=== PATIENT | female | born 1940 | race Caucasian/White ===

== ENCOUNTER 2020-05-30 09:59 | Day surgery (SDC) | payer MEDICARE, BC ==
[2020-05-30] MEDS ORDERED: Midazolam 1 MG/ML 2 ML SDV IV ONE (10:00)
[2020-05-30] MEDS ORDERED: Ondansetron 4 MG/2 ML SDV IV ONE (10:00)
[2020-05-30] MEDS ORDERED: Etomidate 2 MG/ML 20 ML SDV IVPUSH ONE (10:00)
[2020-05-30] MEDS ORDERED: Neostigmine Methylsulfate 10 MG/10 ML MDV IV ONE (10:00)
[2020-05-30] MEDS ORDERED: Rocuronium 100 MG/10 ML MDV IV ONE (10:00)
[2020-05-30] MEDS ORDERED: Glycopyrrolate 0.2 MG/ML 2 ML SDV IV ONE (10:00)
[2020-05-30] MEDS ORDERED: Succinylcholine 200 MG/10 ML MDV IV ONE (10:00)
[2020-05-30] MEDS ORDERED: fentaNYL 100 MCG/2 ML SDV IV ONE (10:00)
[2020-05-30] MEDS ORDERED: Iopamidol 612 MG/ML 100 ML Bottle IVPUSH ONE (10:04)
--- NOTE | 2020-05-30 13:19 | CT ---
EXAMINATION: Abdomen Pelvis w Cont SEX: Female AGE: 79 years CLINICAL HISTORY: 79-year-old hypertensive 162 pound diabetic female complaining right lower quadrant pain (WBC 18,000). Scan technique: Volume acquisition of data unenhanced CT scan of the abdomen and pelvis obtained without oral contrast but during the intravenous administration 75 cc nonionic Isovue contrast at 3 cc/s via injector while patient was lying supine on the Siemens multi slice scanner [place], [place]. All data archived in the PACS system for storage, reformatting axial/sagittal/coronal planes and study. Interpretation: Abnormal. 1. *Distended tubular structure in the right lower quadrant (RLQ) adjacent to the cecum with thickened wall, surrounding inflammatory "dirty" peritoneal fat, and intraluminal calcification i.e. acute appendicitis. 2. No inflammatory abscess or signs of mechanical bowel obstruction. No ascitic fluid or free intraperitoneal air. 3. Gallbladder, liver, stomach, spleen, pancreas and adrenal glands unremarkable. 4. Normal reniform size, axis and configuration. Some renal cortical scarring. No renal cortical mass lesion, nephrolithiasis or signs of obstructive uropathy. 5. Small senescent midline uterus. No adnexal mass lesions in the pelvis. No mesenteric or retroperitoneal lymphadenopathy. 6. Atheromatous calcifications normal caliber aortoiliac vessels. No aneurysm or dissection. 7. Normal cardiac silhouette. No pericardial or pleural effusions. Lung bases clear. CONCLUSION: Acute APPENDICITIS.
[2020-05-30] MEDS ORDERED: Lactated Ringers 1,000 ML IV SCH (14:15)
[2020-05-30] MEDS ORDERED: Piperacillin/Tazobactam 3.375 GM in Sodium Chloride 0.9% 100 ML IV ONE (14:30)
[2020-05-30] MEDS ORDERED: Scopolamine 1.5 MG Transdermal Patch TOP ONE (14:48)
[2020-05-30] MEDS: Morphine 2 MG/ML SYRINGE IVPUSH PRN ×2 (18:07→22:34)
[2020-05-30] MEDS: Sodium Chloride 0.9% 10 ML Syringe FLUSH PRN ×4 (18:08→22:41)
--- NOTE | 2020-05-30 20:46 | OR ---
DATE: 05/30/2020 PREOPERATIVE DIAGNOSIS: Acute appendicitis. POSTOPERATIVE DIAGNOSIS: Acute appendicitis. PROCEDURE: Laparoscopic appendectomy. ANESTHESIA: General. ESTIMATED BLOOD LOSS: Minimum. SPECIMEN: Appendix. OPERATIVE FINDINGS: Acute appendicitis, non-perforated. INDICATION FOR PROCEDURE: This 79-year-old female has a day long history of right lower quadrant pain, elevated white blood cell count of 18,000, and a CT exam that shows acute appendicitis. PROCEDURE IN DETAIL: After adequate preparation, an umbilical 5 mm trocar was placed. The abdomen was insufflated. Two of the midline trocars were placed under direct vision. Examination of the appendix did show the distal 2/3 of the appendix was markedly dilated. The base of the appendix was identified and then the appendix and its mesentery was dissected off the lateral aspect of the colon. A blue staple device was used to transect the appendix at the base and then a vascular white load was used to transect the remaining mesoappendix. Hemostasis was controlled by cautery, which there was only minimal anyway. No other intraabdominal abnormalities were noted. The appendix was placed within a sterile retrieval bag and brought out through the suprapubic trocar site. The abdomen was desufflated. The fascial layers were closed with a 0 Vicryl suture and 4-0 Monocryl for the skin. [facility] /[id number]
[2020-05-30] MEDS: Insulin Lispro 100 Units/ML 3 ML Vial SUBCUT SCH (21:14)
[2020-05-30] MEDS: Acetaminophen/oxyCODONE 325-5 MG Tab PO PRN (23:14)
[2020-05-31] MEDS: Acetaminophen/oxyCODONE 325-5 MG Tab PO PRN ×2 (03:13→07:37)
[2020-05-31] MEDS: Insulin Lispro 100 Units/ML 3 ML Vial SUBCUT SCH ×3 (07:51→12:15)
--- NOTE | 2020-05-31 08:50 | HP ---
INTRODUCTION: This 79-year-old female presented from the [facility] for evaluation of right lower quadrant abdominal pain. She was sent over to the hospital for CT scan, which shows a grossly enlarged appendix with an obstruction in the midportion consistent with appendicitis. No other intra- abdominal abnormalities were noted. On laboratory work, she has an elevated white blood cell count to 18,000. Otherwise, no significant other abnormalities. PAST MEDICAL HISTORY: ALLERGIES: The patient has no known medical allergies. She has several listed on her chart. However, she denies that these are true allergies and states that she usually just gets a headache or nausea with them. PAST SURGICAL HISTORY: Includes laparoscopic tubal ligation. FAMILY HISTORY AND SOCIAL HISTORY: The patient lives here in [place]. She lives by herself. She does not smoke. REVIEW OF SYSTEMS: Positive for insulin-dependent diabetes. MEDICATIONS: Include insulin and metformin. She also takes hydrochlorothiazide. PHYSICAL EXAMINATION: HEENT: Normal. She does talk with a Parkinson-type stutter voice, but she has been worked up for this and has no apparent neurological cause for this. Chest: The lungs are clear bilaterally. Heart: Sounds irregular. I got an EKG and it shows some atrial origins with a few PVCs. Abdomen: Moderately tender in the right lower quadrant. She has positive rebound and positive Rovsing sign. Extremities: Normal. Neurologic: Intact. ASSESSMENT: Acute appendicitis. PLAN: I discussed the risks, benefits, and expected outcomes of a laparoscopic appendectomy. She is currently scheduled to undergo her COVID testing for right now and will then proceed to the operating room. [facility] /[id number]
[2020-05-31] MEDS ORDERED: Scopolamine 1.5 MG Transdermal Patch TOP ONE (10:42)
[2020-05-31 12:06] VITALS: BP 121/53; PULSE 63
--- NOTE | 2020-05-31 13:31 | PCM.SN.2 ---
- Free Text/Narrative Note: Stable POD #1. Pain controlled. PO liquid tolerated. Wounds clean and dry. No nausea but has slight dizzyness. Can discharge now. FU my clinic Aug if has any questions. No restrictions on diet or activity. Instructed to be aware of increased pain again or fever over 101, will nee to be seen in clinic or ER.
== END 2020-05-31 16:00 | disposition home or self-care (01) ==
LOC: DL.SDS 09:59 → DL.CT 09:59 → EDSTATUS 11:00 → DL.MS 05-31 07:17 → DL.SDS 05-31 16:00
PROVIDERS: ATTEND Surgery
DX: K35.33 Acute appendicitis with perforation, localized peritonitis, and gangrene, with abscess (principal); E11.9 Type 2 diabetes mellitus without complications; Z11.59 Encounter for screening for other viral diseases; Z79.4 Long term (current) use of insulin; Z98.51 Tubal ligation status
CPT/HCPCS: 00840; 74177; 82962; A9270-GY; J0330; J2250; J2270; J2405; J2543; J2710; J3010; J3490; J7050; J7120; Q9967; U0002

== ENCOUNTER 2020-06-04 10:01 | Emergency (ER) | payer MEDICARE, BC ==
[2020-06-04 10:17] VITALS: PULSE 69
[2020-06-04 11:02] LABS: ANION GAP 11.6 mEq/L (7-13)
--- NOTE | 2020-06-04 11:23 | EDM.PDOC ---
Scribed by Stephany Nolan 06/04/20 1119 for Brittaney Field NP ED HPI GENERAL MEDICAL PROBLEM - General Chief Complaint: General Stated Complaint: POSSIBLE SURGERY COMPLICATIONS Time Seen by Provider: 06/04/20 10:25 Source of Information: Reports: Patient, Old Records, RN, RN Notes Reviewed History Limitations: Reports: No Limitations - History of Present Illness INITIAL COMMENTS - FREE TEXT/NARRATIVE: Patient presents to ER with complaint of chills last night, sweaty and fatigued. She has had no fever. Patient is status post laparoscopic appendectomy on May 30, 2020. She has a prescription for Oxycodone but is not taking it. Her diabetes has been in good control. Abdominal discomfort very mild. She had a good BM this am; normal. No dizziness. Onset: Today Duration: Hour(s): Location: Reports: Abdomen Quality: Reports: Ache Severity: Moderate Improves with: Reports: None Worsens with: Reports: None Associated Symptoms: Reports: No Other Symptoms - Related Data Allergies Allergy/AdvReac Type Severity Reaction Status Date / Time amoxicillin [Amoxicillin] Allergy Nausea Verified 06/04/20 10:17 amoxicillin trihydrate Allergy Nausea Verified 06/04/20 10:17 [From Augmentin] azithromycin [From Zithromax] Allergy Nausea Verified 06/04/20 10:17 lisinopril Allergy Indigestion Verified 06/04/20 10:17 losartan [Losartan] Allergy Nervousness Verified 06/04/20 10:17 potassium clavulanate Allergy Nausea Verified 06/04/20 10:17 [From Augmentin] pravastatin Allergy Nausea Verified 06/04/20 10:17 simvastatin Allergy Nausea Verified 06/04/20 10:17 valsartan [From Diovan] Allergy Lethargy Verified 06/04/20 10:17 aliskiren hemifumarate AdvReac Stomach Verified 06/04/20 10:17 [From Tekturna] Upset Home Meds: Home Meds Insulin Glarg,Human.Rec.Analog [Lantus Solostar] 30 units INJECT BID 04/03/14 [History] Levothyroxine [Synthroid] 88 mcg PO ACBRK 04/03/14 [History] amLODIPine Besylate [Amlodipine Besylate] 5 mg PO DAILY 04/03/14 [History] hydroCHLOROthiazide [Hydrochlorothiazide] 12.5 mg PO DAILY 04/03/14 [History] metFORMIN [Glucophage] 500 mg PO BID 04/03/14 [History] Meclizine [Antivert] 12.5 mg PO TID PRN 05/03/15 [History] Triamcinolone Acetonide [Triamcinolone Acetonide 0.1% Crm] 1 applic TOP BID PRN 05/03/15 [History] Past Medical History HEENT History: Reports: Sinusitis Other HEENT History: DIABETIC EYE EXAM EVERY 3 MONTHS Cardiovascular History: Reports: High Cholesterol, Hypertension, Other (See Below) Other Cardiovascular History: IRREGULAR RYTHM Respiratory History: Reports: None Other Respiratory History: HAS RECEIVED PNEMO VAX Gastrointestinal History: Reports: Colon Polyp Genitourinary History: Reports: Chronic Renal Insuffiency Other Genitourinary History: CALCUS OF URETER, CKD 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 [employer]ER History: Reports: Musculoskeletal History: Reports: Back Pain, Chronic, Fracture, Other (See Below) Other Musculoskeletal History: DDD LUMBAR; LUMBAR RADICULOPATHY; WRIST FRACTURE Neurological History: Reports: None Psychiatric History: Reports: None Endocrine/Metabolic History: Reports: Diabetes, Type II, Hypothyroidism, Osteopenia, Other (See Below) Other Endocrine/Metabolic History: VITAMIN B12 Hematologic History: Reports: B12 Deficiency Immunologic History: Reports: None Oncologic (Cancer) History: Reports: None Dermatologic History: Reports: None - Infectious Disease History Infectious Disease History: Reports: Chicken Pox, Measles, Mumps - Past Surgical History Head Surgeries/Procedures: Reports: None HEENT Surgical History: Reports: Cataract Surgery Other HEENT Surgeries/Procedures: BILAT EYE CATARACT EXTRACTION Cardiovascular Surgical History: Reports: None Respiratory Surgical History: Reports: None GI Surgical History: Reports: Appendectomy, Colonoscopy, Polypectomy Female Surgical History: Reports: Tubal Ligation Male Surgical History: Reports: None Endocrine Surgical History: Reports: None Neurological Surgical History: Reports: None Musculoskeletal Surgical History: Reports: None Oncologic Surgical History: Reports: None Social & Family History - Family History Family Medical History: Noncontributory - Caffeine Use Caffeine Use: Reports: Coffee, Tea - Living Situation & Occupation Living situation: Reports: with Family Occupation: Retired ED ROS GENERAL - Review of Systems Review Of Systems: Comprehensive ROS is negative, except as noted in HPI. ED EXAM, GENERAL - Physical Exam Exam: See Below Exam Limited By: No Limitations General Appearance: Alert, WD/WN, No Apparent Distress Eye Exam: Bilateral Eye: EOMI, Normal Inspection, PERRL Ears: Normal External Exam, Normal Canal, Hearing Grossly Normal, Normal TMs Nose: Normal Inspection, Normal Mucosa, No Blood Throat/Mouth: Normal Inspection, Normal Lips, Normal Teeth, Normal Gums, Normal Oropharynx, Normal Voice, No Airway Compromise Head: Atraumatic, Normocephalic Neck: Normal Inspection, Supple, Non-Tender, Full Range of Motion Respiratory/Chest: No Respiratory Distress, Lungs Clear, Normal Breath Sounds, No Accessory Muscle Use, Chest Non-Tender Cardiovascular: Normal Peripheral Pulses, Regular Rate, Rhythm, No Edema, No Gallop, No JVD, No Murmur, No Rub GI/Abdominal: Other (3 incisions are covered with steri-strips. ) (Female) Exam: Deferred Rectal (Female) Exam: Deferred Back Exam: Normal Inspection, Full Range of Motion, NT Extremities: Normal Inspection, Normal Range of Motion, Non-Tender, Normal Capillary Refill, No Pedal Edema Neurological: Alert, Oriented, CN II-XII Intact, Normal Cognition, Normal Gait, Normal Reflexes, No Motor/Sensory Deficits Psychiatric: Normal Affect, Normal Mood Skin Exam: Other (3 incicions covered with steri-strips. ) Course - Vital Signs Text/Narrative:: Patient EKG normal appearing. No CP or SOB. Mild weakness 5 days post surgery. CBC, CMP, UA are all normal. Last Recorded V/S: Last Vital Signs Temp 98.3 F 06/04/20 10:11 Pulse 69 06/04/20 10:11 Resp 20 06/04/20 10:11 BP Pulse Ox 97 06/04/20 10:11 - Orders/Labs/Meds Orders: Active Orders 24 hr Category Date Time Status EKG 12 Lead [EKG Documentation Completion] [RC] STAT Care 06/04/20 10:30 Active Labs: Laboratory Tests 06/04/20 06/04/20 06/04/20 Range/Units 10:35 10:35 10:45 WBC 8.6 (5.0-10.0) 10^3/uL RBC 4.37 (4.2-5.4) 10^6/uL Hgb 12.2 (12.0-16.0) g/dL Hct 36.5 L (37.0-47.0) % MCV 83.5 (80-100) fL MCH 27.9 (27.0-34.0) pg MCHC 33.4 (33.0-35.0) g/dL Plt Count 389 (150-450) 10^3/uL Sodium 141 (136-145) mmol/L Potassium 3.6 (3.5-5.1) mmol/L Chloride 101 (98-107) mmol/L Carbon Dioxide 32 (21-32) mmol/L Anion Gap 11.6 (7-13) mEq/L BUN 12 (7-18) mg/dL Creatinine 0.92 (0.55-1.02) mg/dL Est Cr Clr Drug Dosing 41.41 mL/min Estimated GFR (MDRD) 59 BUN/Creatinine Ratio 13.0 (No establ ref range) Glucose 129 H (74-99) mg/dL Calcium 9.2 (8.5-10.1) mg/dL Total Bilirubin 0.5 (0.2-1.0) mg/dL AST 23 (15-37) U/L ALT 24 (14-59) U/L Alkaline Phosphatase 67 (46-116) U/L Total Protein 7.3 (6.4-8.2) g/dL Albumin 3.4 (3.4-5.0) g/dL Globulin 3.9 Albumin/Globulin Ratio 0.9 Urine Color Yellow (YELLOW) Urine Appearance Clear (CLEAR) Urine pH 7.5 (5.0-9.0) Ur Specific [place] 1.015 (1.005-1.030) Urine Protein Negative (NEGATIVE) Urine Glucose (UA) Negative (NEGATIVE) Urine Ketones Negative (NEGATIVE) Urine Occult Blood Negative (NEGATIVE) Urine Nitrite Negative (NEGATIVE) Urine Bilirubin Negative (NEGATIVE) Urine Urobilinogen 1.0 (0.2-1.0) mg/dL Ur Leukocyte Esterase Negative (NEGATIVE) Departure - Departure Time of Disposition: 11:21 Disposition: Home, Self-Care 01 Condition: Good Clinical Impression: S/P appendectomy, Weakness - Discharge Information Forms: ED Department Discharge Additional Instructions: Increase fluid intake. f/u with your surgeon and pcp Sepsis Event Note (ED) - Evaluation Sepsis Screening Result: No Definite Risk - Focused Exam Vital Signs: Vital Signs Temp Pulse Resp Pulse Ox 06/04/20 10:11 98.3 F 69 20 97 - My Orders Last 24 Hours: My Active Orders 06/04/20 10:30 EKG 12 Lead [EKG Documentation Completion] [RC] STAT - Assessment/Plan Last 24 Hours: My Active Orders 06/04/20 10:30 EKG 12 Lead [EKG Documentation Completion] [RC] STAT I have read and agree with the documentation that has been completed regarding this visit. By signing this record, I attest that the documentation was completed in my physical presence and is an accurate record of the encounter.
== END 2020-06-04 11:35 | disposition home or self-care (01) ==
LOC: DL.ED 10:01
DX: R53.1 Weakness (principal); I12.9 Hypertensive chronic kidney disease with stage 1 through stage 4 chronic kidney disease, or unspecified chronic kidney disease; N18.9 Chronic kidney disease, unspecified; E11.22 Type 2 diabetes mellitus with diabetic chronic kidney disease; Z90.49 Acquired absence of other specified parts of digestive tract; E03.9 Hypothyroidism, unspecified; Z88.1 Allergy status to other antibiotic agents; Z88.8 Allergy status to other drugs, medicaments and biological substances; Z79.4 Long term (current) use of insulin; Z79.899 Other long term (current) drug therapy
CPT/HCPCS: 36415; 80053; 81003; 85027; 93005; 99283; 99285-25

== ENCOUNTER 2020-09-22 10:09 | Emergency (ER) | payer MEDICARE, BC ==
[2020-09-22 09:54] VITALS: BP 128/71; PULSE 74
[2020-09-22 10:17] LABS: PTT,PARTIAL THROMBOPLSTIN TIME 21.7 SEC (22.0-34.0)
[2020-09-22 10:21] LABS: ANION GAP 19.9 mEq/L (7-13); CHLORIDE,CL 100 mmol/L (98-107); SODIUM,NA 140 mmol/L (136-145)
[2020-09-22] MEDS ORDERED: Potassium Chloride 20 MEQ in Premix Bag 1 BAG IV ONE (10:28)
[2020-09-22] MEDS ORDERED: Sodium Chloride 0.9% 500 ML IV ONE (10:29)
[2020-09-22] MEDS ORDERED: Magnesium Sulfate/Water 2 GM/50 ML BAG IV ONE (10:29)
--- NOTE | 2020-09-22 10:39 | EDM.PDOC ---
ED HPI GENERAL MEDICAL PROBLEM - General Chief Complaint: Cardiovascular Problem Stated Complaint: AMBULANCE Time Seen by Provider: 09/22/20 10:10 Source of Information: Reports: Patient, RN, RN Notes Reviewed History Limitations: Reports: No Limitations - History of Present Illness INITIAL COMMENTS - FREE TEXT/NARRATIVE: Patient presents to the ED via personal vehicle with complaints of syncope. Per patient report she has been feeling "off" for two weeks and has been doctoring at the clinic for weakness, nausea, and dizziness. She reports she underwent an MRI four days ago due to weakness and continual tremor in the right upper extremity; she states signs of stroke were ruled out and she was diagnosed with a resting tremor. She reports an episode of syncope in her bathroom today; she feels she was unconscious for about one hour. She does attest to checking her blood sugar this morning and took her normal dose of 28 units of Lantus for a BS of 121. She currently attests to chest pressure and shortness of breath. She denies fever, shaking chills, palpitations, nausea, vomiting, diarrhea, dysuria, hematuria, melena, or hematochezia. She denies tobacco, alcohol, or recreational substance use. Right Hip Pain Score (Numeric/FACES): 5 - Related Data Allergies Allergy/AdvReac Type Severity Reaction Status Date / Time amoxicillin [Amoxicillin] Allergy Nausea Verified 09/22/20 10:17 amoxicillin trihydrate Allergy Nausea Verified 09/22/20 10:17 [From Augmentin] azithromycin [From Zithromax] Allergy Nausea Verified 09/22/20 10:17 lisinopril Allergy Indigestion Verified 09/22/20 10:17 losartan [Losartan] Allergy Nervousness Verified 09/22/20 10:17 potassium clavulanate Allergy Nausea Verified 09/22/20 10:17 [From Augmentin] pravastatin Allergy Nausea Verified 09/22/20 10:17 simvastatin Allergy Nausea Verified 09/22/20 10:17 valsartan [From Diovan] Allergy Lethargy Verified 09/22/20 10:17 aliskiren hemifumarate AdvReac Stomach Verified 09/22/20 10:17 [From Tekturna] Upset Home Meds: Home Meds Insulin Glarg,Human.Rec.Analog [Lantus Solostar] 28 units INJECT BID 04/03/14 [History] Levothyroxine [Synthroid] 88 mcg PO ACBRK 04/03/14 [History] amLODIPine Besylate [Amlodipine Besylate] 5 mg PO DAILY 04/03/14 [History] hydroCHLOROthiazide [Hydrochlorothiazide] 12.5 mg PO DAILY 04/03/14 [History] metFORMIN [Glucophage] 1,000 mg PO BID 04/03/14 [History] Triamcinolone Acetonide [Triamcinolone Acetonide 0.1% Crm] 1 applic TOP BID PRN 05/03/15 [History] Past Medical History HEENT History: Reports: Sinusitis Other HEENT History: DIABETIC EYE EXAM EVERY 3 MONTHS Cardiovascular History: Reports: High Cholesterol, Hypertension, Other (See Below) Other Cardiovascular History: IRREGULAR RHYTHM Respiratory History: Reports: None Other Respiratory History: HAS RECEIVED PNEMO VAX Gastrointestinal History: Reports: Colon Polyp Genitourinary History: Reports: Chronic Renal Insuffiency Other Genitourinary History: CALCUS OF URETER, CKD WEAVER TIRE CORD History: Reports: Musculoskeletal History: Reports: Back Pain, Chronic, Fracture, Other (See Below) Other Musculoskeletal History: DDD LUMBAR; LUMBAR RADICULOPATHY; WRIST FRACTURE Neurological History: Reports: None Psychiatric History: Reports: None Endocrine/Metabolic History: Reports: Diabetes, Type II, Hypothyroidism, Osteopenia, Other (See Below) Other Endocrine/Metabolic History: VITAMIN B12 Hematologic History: Reports: B12 Deficiency Immunologic History: Reports: None Oncologic (Cancer) History: Reports: None Dermatologic History: Reports: None - Infectious Disease History Infectious Disease History: Reports: None - Past Surgical History Head Surgeries/Procedures: Reports: None HEENT Surgical History: Reports: Cataract Surgery Other HEENT Surgeries/Procedures: BILAT EYE CATARACT EXTRACTION Cardiovascular Surgical History: Reports: None Respiratory Surgical History: Reports: None GI Surgical History: Reports: Appendectomy, Colonoscopy, Polypectomy Female Surgical History: Reports: Tubal Ligation Endocrine Surgical History: Reports: None Neurological Surgical History: Reports: None Musculoskeletal Surgical History: Reports: None Oncologic Surgical History: Reports: None Social & Family History - Family History Family Medical History: Noncontributory - Tobacco Use Tobacco Use Status *Q: Never Tobacco User Second Hand Smoke Exposure: No - Caffeine Use Caffeine Use: Reports: Coffee, Tea - Recreational Drug Use Recreational Drug Use: No - Living Situation & Occupation Living situation: Reports: with Family Occupation: Retired [employer] - Review of Systems Review Of Systems: Comprehensive ROS is negative, except as noted in HPI. ED EXAM, GENERAL - Physical Exam Exam: See Below Exam Limited By: No Limitations General Appearance: Alert, WD/WN, Mild Distress Eye Exam: Bilateral Eye: EOMI, Normal Inspection, PERRL Throat/Mouth: Normal Voice, No Airway Compromise Head: Atraumatic, Normocephalic Neck: Normal Inspection, Supple, Non-Tender, Full Range of Motion Respiratory/Chest: Lungs Clear, Normal Breath Sounds, No Accessory Muscle Use, Chest Non-Tender, Decreased Breath Sounds Cardiovascular: No Edema, No Gallop, No JVD, No Murmur, No Rub Peripheral Pulses: 1+: Radial (L), Radial (R), Dorsalis Pedis (L), Dorsalis Pedis (R) GI/Abdominal: Soft, Non-Tender, No Distention, No Mass, Abnormal Bowel Sounds (Hypoactive) Back Exam: Normal Inspection, Full Range of Motion. No: CVA Tenderness (L), CVA Tenderness (R) Extremities: Normal Range of Motion, Non-Tender, No Pedal Edema, Normal Capillary Refill, Pallor Neurological: Alert, Oriented, CN II-XII Intact, Normal Cognition, Other (Tremor to RUE) Skin Exam: Warm, Diaphoretic, Pallor. No: Ecchymosis, Erythema, Petechiae, Rash #1 Interpretation EKG Date: 09/22/20 Time: 09:41 Rhythm: NSR Rate (Beats/Min): 79 [place]: LAD-Left [place] Deviation P-Wave: Present QRS: RBBB ST-T: Normal QT: Prolonged (491) Comparison: No Change EKG Interpretation Comments: SE, 1st Degree AVB; No evidence of acute ischemic change #2 Interpretation EKG Date: 09/22/20 Time: 12:43 Rhythm: Other (SR 1st Degree AVB) Rate (Beats/Min): 69 [place]: LAD-Left [place] Deviation P-Wave: Present QRS: RBBB ST-T: Normal QT: Prolonged (523) Comparison: No Change (SR; 1st Degree AVB; No evidence of acute ischemia) Course - Vital Signs Last Recorded V/S: Last Vital Signs Temp 97.1 F 09/22/20 09:30 Pulse 74 09/22/20 09:30 Resp 18 09/22/20 09:30 BP 128/71 09/22/20 09:30 Pulse Ox 100 09/22/20 09:30 - Orders/Labs/Meds Orders: Active Orders 24 hr Category Date Time Status Blood Glucose Check, Bedside [RC] ONETIME Care 09/22/20 09:44 Active EKG Documentation Completion [RC] STAT Care 09/22/20 09:43 Active CULTURE BLOOD [BC] Stat Lab 09/22/20 09:45 Received CULTURE BLOOD [BC] Stat Lab 09/22/20 09:45 Received UA RFX SUZETTE AND CULT IF INDIC [URIN] Stat Lab 09/22/20 14:21 Ordered Heparin Sodium/0.45% NaCl [Heparin 25,000 Units in 1/2 Med 09/22/20 13:59 Active NS 500 ML] 25,000 units in 500 ml IV ONETIME Blood Culture x2 Reflex Set [OM.PC] Stat Oth 09/22/20 09:43 Ordered Medication Orders Heparin Sodium/Sodium Chloride (Heparin 25,000 Units In 1/2 Ns 500 Ml) 25,000 units in 500 mls @ 18.398 mls/hr IV ONETIME ONE; Protocol Stop: 09/23/20 17:09 Last Admin: 09/22/20 14:31 Dose: 12 units/kg/hr, 18.398 mls/hr Documented by: CARTER Cosigned by: VARSHA Labs: Laboratory Tests 09/22/20 09/22/20 09/22/20 Range/Units 09:45 09:45 09:45 WBC 9.4 (5.0-10.0) 10^3/uL RBC 4.41 (4.2-5.4) 10^6/uL Hgb 12.1 (12.0-16.0) g/dL Hct 35.7 L (37.0-47.0) % MCV 81.0 (80-100) fL MCH 27.4 (27.0-34.0) pg MCHC 33.9 (33.0-35.0) g/dL Plt Count 321 (150-450) 10^3/uL Neut % (Auto) 66.4 (42.2-75.2) % Lymph % (Auto) 26.8 (20.5-50.1) % Dunn % (Auto) 5.5 (2-8) % Eos % (Auto) 1.0 (1.0-3.0) % Baso % (Auto) 0.3 (0.0-1.0) % PT 10.2 (9.0-12.0) SEC INR 1.1 (0.9-1.2) APTT 21.7 L (22.0-34.0) SEC D-Dimer, Quantitative 275 (0-400) ng/mL Sodium 140 (136-145) mmol/L Potassium 2.9 L (3.5-5.1) mmol/L Chloride 100 (98-107) mmol/L Carbon Dioxide 23 (21-32) mmol/L Anion Gap 19.9 H (7-13) mEq/L BUN 18 (7-18) mg/dL Creatinine 1.00 (0.55-1.02) mg/dL Est Cr Clr Drug Dosing 37.45 mL/min Estimated GFR (MDRD) 53 BUN/Creatinine Ratio 18.0 (No establ ref range) Glucose 166 H (74-99) mg/dL Lactic Acid (0.4-2.0) mmol/L Calcium 9.5 (8.5-10.1) mg/dL Phosphorus 2.2 L (2.6-4.7) mg/dL Magnesium 1.2 L (1.8-2.4) mg/dL Total Bilirubin 0.5 (0.2-1.0) mg/dL AST 23 (15-37) U/L ALT 24 (14-59) U/L Alkaline Phosphatase 63 (46-116) U/L CK-MB (CK-2) (0.0-3.6) ng/mL Troponin I < 0.017 (0.000-0.056) ng/mL B-Natriuretic Peptide (0-100) pg/ml Total Protein 7.1 (6.4-8.2) g/dL Albumin 3.6 (3.4-5.0) g/dL Globulin 3.5 Albumin/Globulin Ratio 1.0 Urine Opiates Screen (NEGATIVE) Ur Oxycodone Screen (NEGATIVE) Urine Methadone Screen (NEGATIVE) Ur Barbiturates Screen (NEGATIVE) U Tricyclic Antidepress (NEGATIVE) Ur Phencyclidine Scrn (NEGATIVE) Ur Amphetamine Screen (NEGATIVE) U Methamphetamines Scrn (NEGATIVE) Urine MDMA Screen (NEGATIVE) U Benzodiazepines Scrn (NEGATIVE) Urine Cocaine Screen (NEGATIVE) U Marijuana (THC) Screen (NEGATIVE) Ethyl Alcohol < 3 (0) mg/dL SARS CoV-2 RNA Rapid CARMEL (NEGATIVE) 09/22/20 09/22/20 09/22/20 Range/Units 09:45 09:45 10:03 WBC (5.0-10.0) 10^3/uL RBC (4.2-5.4) 10^6/uL Hgb (12.0-16.0) g/dL Hct (37.0-47.0) % MCV (80-100) fL MCH (27.0-34.0) pg MCHC (33.0-35.0) g/dL Plt Count (150-450) 10^3/uL Neut % (Auto) (42.2-75.2) % Lymph % (Auto) (20.5-50.1) % Dunn % (Auto) (2-8) % Eos % (Auto) (1.0-3.0) % Baso % (Auto) (0.0-1.0) % PT (9.0-12.0) SEC INR (0.9-1.2) APTT (22.0-34.0) SEC D-Dimer, Quantitative (0-400) ng/mL Sodium (136-145) mmol/L Potassium (3.5-5.1) mmol/L Chloride (98-107) mmol/L Carbon Dioxide (21-32) mmol/L Anion Gap (7-13) mEq/L BUN (7-18) mg/dL Creatinine (0.55-1.02) mg/dL Est Cr Clr Drug Dosing mL/min Estimated GFR (MDRD) BUN/Creatinine Ratio (No establ ref range) Glucose (74-99) mg/dL Lactic Acid 4.5 H* (0.4-2.0) mmol/L Calcium (8.5-10.1) mg/dL Phosphorus (2.6-4.7) mg/dL Magnesium (1.8-2.4) mg/dL Total Bilirubin (0.2-1.0) mg/dL AST (15-37) U/L ALT (14-59) U/L Alkaline Phosphatase (46-116) U/L CK-MB (CK-2) (0.0-3.6) ng/mL Troponin I (0.000-0.056) ng/mL B-Natriuretic Peptide 70 (0-100) pg/ml Total Protein (6.4-8.2) g/dL Albumin (3.4-5.0) g/dL Globulin Albumin/Globulin Ratio Urine Opiates Screen Negative (NEGATIVE) Ur Oxycodone Screen Negative (NEGATIVE) Urine Methadone Screen Negative (NEGATIVE) Ur Barbiturates Screen Negative (NEGATIVE) U Tricyclic Antidepress Negative (NEGATIVE) Ur Phencyclidine Scrn Negative (NEGATIVE) Ur Amphetamine Screen Negative (NEGATIVE) U Methamphetamines Scrn Negative (NEGATIVE) Urine MDMA Screen Negative (NEGATIVE) U Benzodiazepines Scrn Negative (NEGATIVE) Urine Cocaine Screen Negative (NEGATIVE) U Marijuana (THC) Screen Negative (NEGATIVE) Ethyl Alcohol (0) mg/dL SARS CoV-2 RNA Rapid CARMEL (NEGATIVE) 09/22/20 09/22/20 09/22/20 Range/Units 10:21 13:03 13:03 WBC (5.0-10.0) 10^3/uL RBC (4.2-5.4) 10^6/uL Hgb (12.0-16.0) g/dL Hct (37.0-47.0) % MCV (80-100) fL MCH (27.0-34.0) pg MCHC (33.0-35.0) g/dL Plt Count (150-450) 10^3/uL Neut % (Auto) (42.2-75.2) % Lymph % (Auto) (20.5-50.1) % Dunn % (Auto) (2-8) % Eos % (Auto) (1.0-3.0) % Baso % (Auto) (0.0-1.0) % PT (9.0-12.0) SEC INR (0.9-1.2) APTT (22.0-34.0) SEC D-Dimer, Quantitative (0-400) ng/mL Sodium (136-145) mmol/L Potassium (3.5-5.1) mmol/L Chloride (98-107) mmol/L Carbon Dioxide (21-32) mmol/L Anion Gap (7-13) mEq/L BUN (7-18) mg/dL Creatinine (0.55-1.02) mg/dL Est Cr Clr Drug Dosing mL/min Estimated GFR (MDRD) BUN/Creatinine Ratio (No establ ref range) Glucose (74-99) mg/dL Lactic Acid (0.4-2.0) mmol/L Calcium (8.5-10.1) mg/dL Phosphorus (2.6-4.7) mg/dL Magnesium (1.8-2.4) mg/dL Total Bilirubin (0.2-1.0) mg/dL AST (15-37) U/L ALT (14-59) U/L Alkaline Phosphatase (46-116) U/L CK-MB (CK-2) 1.6 (0.0-3.6) ng/mL Troponin I 0.083 H* (0.000-0.056) ng/mL B-Natriuretic Peptide (0-100) pg/ml Total Protein (6.4-8.2) g/dL Albumin (3.4-5.0) g/dL Globulin Albumin/Globulin Ratio Urine Opiates Screen (NEGATIVE) Ur Oxycodone Screen (NEGATIVE) Urine Methadone Screen (NEGATIVE) Ur Barbiturates Screen (NEGATIVE) U Tricyclic Antidepress (NEGATIVE) Ur Phencyclidine Scrn (NEGATIVE) Ur Amphetamine Screen (NEGATIVE) U Methamphetamines Scrn (NEGATIVE) Urine MDMA Screen (NEGATIVE) U Benzodiazepines Scrn (NEGATIVE) Urine Cocaine Screen (NEGATIVE) U Marijuana (THC) Screen (NEGATIVE) Ethyl Alcohol (0) mg/dL SARS CoV-2 RNA Rapid CARMEL Negative (NEGATIVE) Meds: Medications Generic Name Dose Route Start Last Admin Trade Name Freq PRN Reason Stop Dose Admin Heparin Sodium/Sodium Chloride 25,000 units in 500 mls @ 18.398 mls/hr 09/22/20 13:59 09/22/20 14:31 Heparin 25,000 Units In 1/2 Ns 500 Ml IV 09/23/20 17:09 12 units/kg/hr ONETIME ONE 18.398 mls/hr Administration Protocol 12 UNITS/KG/HR Discontinued Medications Generic Name Dose Route Start Last Admin Trade Name Freq PRN Reason Stop Dose Admin Potassium Chloride 20 meq/ 100 mls @ 50 mls/hr 09/22/20 10:28 09/22/20 11:39 Premix IV 09/22/20 12:27 50 mls/hr ONETIME ONE Administration Magnesium Sulfate 2 gm in 50 mls @ 50 mls/hr 09/22/20 10:29 09/22/20 14:37 Magnesium Sulfate In Water Premix IV 09/22/20 11:28 50 mls/hr ONETIME ONE Administration Sodium Chloride 500 mls @ 125 mls/hr 09/22/20 10:29 09/22/20 11:40 Normal Saline IV 09/22/20 14:28 125 mls/hr ASDIRECTED ONE Administration Magnesium Sulfate/Dextrose Confirm 09/22/20 14:28 09/22/20 14:37 Magnesium Sulfate In D5w 100 Premix Administered 09/22/20 14:29 Not Given Dose 1 gm in 100 mls @ as directed .ROUTE .[facility] ONE - Radiology Interpretation Free Text/Narrative:: [facility] Final Radiology Report Call: [phone] assistance Online chat: [email or web address] Name: GINETTE THORNTON Age: 80Years F Date: 09/22/2020 SSN: -- : [id number] Study: CT HEAD WO CONT Requesting Physician: Magi Perry Images: 144 Addl Studies: Provided Clinical History: Syncope Contrast: Without Contrast Medium: Contrast Amount: Contrast Method: Page 1 of 2 PROCEDURE INFORMATION: Exam: CT Head Without Contrast Exam date and time: 09/22/2020 11:50 AM Age: 80 years old Clinical indication: Other: Syncope TECHNIQUE: Imaging protocol: Computed tomography of the head without contrast. Radiation optimization: All CT scans at this facility use at least one of these dose optimization techniques: automated exposure control; mA and/or kV adjustment per patient size (includes targeted exams where dose is matched to clinical indication); or iterative reconstruction. COMPARISON: MR Brain wo Cont 09/05/2020 8:50 AM FINDINGS: Brain: The brain demonstrates diffuse volume loss. There is white matter hypodensity most consistent with chronic small vessel ischemic change. No visible evolving territorial infarct. No hemorrhage. Cerebral ventricles: The ventricles are mildly to moderately enlarged in keeping with volume loss. Bones/joints: Unremarkable. No acute fracture. Paranasal sinuses: Visualized sinuses are unremarkable. No fluid levels. Mastoid air cells: Visualized mastoid air cells are well aerated. Orbital cavity: Thinning of the lenses of the globes consistent with prior lens surgery. Soft tissues: Unremarkable. IMPRESSION: No acute intracranial abnormality seen. Thank you for allowing us to participate in the care of your patient. GINETTE THORNTON | Final Radiology Report CONFIDENTIALITY STATEMENT This report is intended only for use by the referring physician, and only in accordance with law. If you received this in error, call [phone]. Page 2 of 2 Dictated and Authenticated by: Mindy Noel MD 09/22/2020 12:43 PM Central Time ([place] & [place]) [facility] Final Radiology Report Call: [phone] assistance Online chat: [email or web address] Name: GINETTE THORNTON Age: 80Years F Date: 09/22/2020 SSN: -- : [id number] Study: CR CHEST 1V FRONTAL Requesting Physician: Magi Perry Images: 1 Addl Studies: Provided Clinical History: Chest pain Contrast: Contrast Medium: Contrast Amount: Contrast Method: CONFIDENTIALITY STATEMENT This report is intended only for use by the referring physician, and only in accordance with law. If you received this in error, call [phone]. Page 1 of 1 PROCEDURE INFORMATION: Exam: XR Chest, 1 View Exam date and time: 09/22/2020 11:20 AM Age: 80 years old Clinical indication: Chest pain; Type not specified TECHNIQUE: Imaging protocol: XR of the chest Views: 1 view. COMPARISON: No relevant prior studies available. FINDINGS: Lungs: No consolidation seen. Pleural space: Unremarkable. No pleural effusion. No pneumothorax. Heart/Mediastinum: Moderate cardiomegaly. Bones/joints: Unremarkable. IMPRESSION: 1. No evidence of acute cardiopulmonary disease. 2. Cardiomegaly. Thank you for allowing us to participate in the care of your patient. Dictated and Authenticated by: Mindy Noel MD 09/22/2020 12:46 PM Central Time ([place] & [place]) - Re-Assessments/Exams Free Text/Narrative Re-Assessment/Exam: 09/22/20 11:00 IVF infusing for Lactic 4.5. K 2.9 and Mag 1.2 - will replace. Troponin and EKG negative for ischemia. Continuing cardiac monitoring d/t assessment. 09/22/20 14:03 Troponin elevated at 0.08. Dr. Reeder at [facility] in [place] to accept patient. Heparin gtt initiated. IVF infusing. K and Mag replacements currently infusing. Aortic dissection r/o with BUE BP checks. Discussed plan for transfer with patient. She verbalized understanding and agreement with the plan of care. Erik in [place] on full diversion at this time. Departure - Departure Time of Disposition: 14:45 Disposition: DC/Tfer to Acute Hospital 02 Reason for Transfer *Q: Primary PCI Indicated Condition: Good Clinical Impression: NSTEMI (non-ST elevated myocardial infarction), Hypokalemia, Hypomagnesemia, Syncope and collapse Forms: ED Department Discharge, Interfacility Transfer DOMINIQUE Sepsis Event Note (ED) - Evaluation Sepsis Screening Result: No Definite Risk - Focused Exam Vital Signs: Vital Signs Temp Pulse Resp BP Pulse Ox 09/22/20 09:30 97.1 F 74 18 128/71 100 - My Orders Last 24 Hours: My Active Orders 09/22/20 09:43 EKG Documentation Completion [RC] STAT Blood Culture x2 Reflex Set [OM.PC] Stat 09/22/20 09:44 Blood Glucose Check, Bedside [RC] ONETIME 09/22/20 09:45 CULTURE BLOOD [BC] Stat CULTURE BLOOD [BC] Stat 09/22/20 13:59 Heparin Sodium/0.45% NaCl [Heparin 25,000 Units in 1/2 NS 500 ML] 25,000 units in 500 ml IV ONETIME 09/22/20 14:21 UA RFX SUZETTE AND CULT IF INDIC [URIN] Stat - Assessment/Plan Last 24 Hours: My Active Orders 09/22/20 09:43 EKG Documentation Completion [RC] STAT Blood Culture x2 Reflex Set [OM.PC] Stat 09/22/20 09:44 Blood Glucose Check, Bedside [RC] ONETIME 09/22/20 09:45 CULTURE BLOOD [BC] Stat CULTURE BLOOD [BC] Stat 09/22/20 13:59 Heparin Sodium/0.45% NaCl [Heparin 25,000 Units in 1/2 NS 500 ML] 25,000 units in 500 ml IV ONETIME 09/22/20 14:21 UA RFX SUZETTE AND CULT IF INDIC [URIN] Stat
--- NOTE | 2020-09-22 12:43 | CT ---
PROCEDURE INFORMATION: Exam: CT Head Without Contrast Exam date and time: 09/22/2020 11:50 AM Age: 80 years old Clinical indication: Other: Syncope TECHNIQUE: Imaging protocol: Computed tomography of the head without contrast. Radiation optimization: All CT scans at this facility use at least one of these dose optimization techniques: automated exposure control; mA and/or kV adjustment per patient size (includes targeted exams where dose is matched to clinical indication); or iterative reconstruction. COMPARISON: MR Brain wo Cont 09/05/2020 8:50 AM FINDINGS: Brain: The brain demonstrates diffuse volume loss. There is white matter hypodensity most consistent with chronic small vessel ischemic change. No visible evolving territorial infarct. No hemorrhage. Cerebral ventricles: The ventricles are mildly to moderately enlarged in keeping with volume loss. Bones/joints: Unremarkable. No acute fracture. Paranasal sinuses: Visualized sinuses are unremarkable. No fluid levels. Mastoid air cells: Visualized mastoid air cells are well aerated. Orbital cavity: Thinning of the lenses of the globes consistent with prior lens surgery. Soft tissues: Unremarkable. IMPRESSION: No acute intracranial abnormality seen.
--- NOTE | 2020-09-22 12:46 | CR ---
PROCEDURE INFORMATION: Exam: XR Chest, 1 View Exam date and time: 09/22/2020 11:20 AM Age: 80 years old Clinical indication: Chest pain; Type not specified TECHNIQUE: Imaging protocol: XR of the chest Views: 1 view. COMPARISON: No relevant prior studies available. FINDINGS: Lungs: No consolidation seen. Pleural space: Unremarkable. No pleural effusion. No pneumothorax. Heart/Mediastinum: Moderate cardiomegaly. Bones/joints: Unremarkable. IMPRESSION: 1. No evidence of acute cardiopulmonary disease. 2. Cardiomegaly.
[2020-09-22] MEDS ORDERED: Heparin Sodium/0.45% NaCl 25,000 UNITS/500 ML BAG IV ONE (13:59)
[2020-09-22] MEDS ORDERED: D5W ONE (14:28)
[2020-09-22] MEDS ORDERED: MAGNESIUM SULFATE ONE (14:28)
== END 2020-09-22 15:05 ==
LOC: DL.ED 10:09
DX: I21.4 Non-ST elevation (NSTEMI) myocardial infarction (principal); E87.6 Hypokalemia; E83.42 Hypomagnesemia; R55 Syncope and collapse; I12.9 Hypertensive chronic kidney disease with stage 1 through stage 4 chronic kidney disease, or unspecified chronic kidney disease; N18.9 Chronic kidney disease, unspecified; E11.22 Type 2 diabetes mellitus with diabetic chronic kidney disease; E03.9 Hypothyroidism, unspecified; Z79.4 Long term (current) use of insulin; Z79.899 Other long term (current) drug therapy; Z88.1 Allergy status to other antibiotic agents; Z88.8 Allergy status to other drugs, medicaments and biological substances; Z20.828 Contact with and (suspected) exposure to other viral communicable diseases
CPT/HCPCS: 36415; 70450; 71045; 80053; 80305; 80307; 81001; 82553; 82962; 83605; 83735; 83880; 84100; 84484; 85025; 85379; 85610; 85730; 87040; 93005; 96365; 96366; 96367; 96368; 99285; J1644; J3475; J3480; J7030; U0002

== ENCOUNTER 2020-10-09 05:42 | Emergency (ER) | payer MEDICARE, BC ==
--- NOTE | 2020-10-09 05:56 | EDM.PDOC ---
<Sarkis Birmingham - Last Filed: 10/09/20 05:54> ED HPI GENERAL MEDICAL PROBLEM - General Chief Complaint: Cardiovascular Problem Stated Complaint: AMBULANCE Time Seen by Provider: 10/09/20 05:54 Source of Information: Reports: Patient History Limitations: Reports: No Limitations - History of Present Illness INITIAL COMMENTS - FREE TEXT/NARRATIVE: woke up sweating with CP. was here 2 weeks ago Dx with non-stemi, sent to [facility] had 1x stent placed. 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: Aspirin, EKG, Nitroglycerin - Related Data Allergies Allergy/AdvReac Type Severity Reaction Status Date / Time amoxicillin [Amoxicillin] Allergy Nausea Verified 10/09/20 06:05 amoxicillin trihydrate Allergy Nausea Verified 10/09/20 06:05 [From Augmentin] azithromycin [From Zithromax] Allergy Nausea Verified 10/09/20 06:05 lisinopril Allergy Indigestion Verified 10/09/20 06:05 losartan [Losartan] Allergy Nervousness Verified 10/09/20 06:05 potassium clavulanate Allergy Nausea Verified 10/09/20 06:05 [From Augmentin] pravastatin Allergy Nausea Verified 10/09/20 06:05 simvastatin Allergy Nausea Verified 10/09/20 06:05 valsartan [From Diovan] Allergy Lethargy Verified 10/09/20 06:05 aliskiren hemifumarate AdvReac Stomach Verified 10/09/20 06:05 [From Tekturna] Upset Home Meds: Home Meds Insulin Glarg,Human.Rec.Analog [Lantus Solostar] 28 units INJECT BID 04/03/14 [History] Levothyroxine [Synthroid] 88 mcg PO ACBRK 04/03/14 [History] amLODIPine Besylate [Amlodipine Besylate] 5 mg PO DAILY 04/03/14 [History] hydroCHLOROthiazide [Hydrochlorothiazide] 12.5 mg PO DAILY 04/03/14 [History] metFORMIN [Glucophage] 1,000 mg PO BID 04/03/14 [History] Triamcinolone Acetonide [Triamcinolone Acetonide 0.1% Crm] 1 applic TOP BID PRN 05/03/15 [History] Past Medical History HEENT History: Reports: Sinusitis Other HEENT History: DIABETIC EYE EXAM EVERY 3 MONTHS Cardiovascular History: Reports: High Cholesterol, Hypertension, Other (See Below) Other Cardiovascular History: IRREGULAR RHYTHM Respiratory History: Reports: None Other Respiratory History: HAS RECEIVED PNEMO VAX Gastrointestinal History: Reports: Colon Polyp Genitourinary History: Reports: Chronic Renal Insuffiency Other Genitourinary History: CALCUS OF URETER, CKD 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: Musculoskeletal History: Reports: Back Pain, Chronic, Fracture, Other (See B elow) Other Musculoskeletal History: DDD LUMBAR; LUMBAR RADICULOPATHY; WRIST FRACTURE Neurological History: Reports: None Psychiatric History: Reports: None Endocrine/Metabolic History: Reports: Diabetes, Type II, Hypothyroidism, Osteopenia, Other (See Below) Other Endocrine/Metabolic History: VITAMIN B12 Hematologic History: Reports: B12 Deficiency Immunologic History: Reports: None Oncologic (Cancer) History: Reports: None Dermatologic History: Reports: None - Infectious Disease History Infectious Disease History: Reports: None - Past Surgical History Head Surgeries/Procedures: Reports: None HEENT Surgical History: Reports: Cataract Surgery Other HEENT Surgeries/Procedures: BILAT EYE CATARACT EXTRACTION Cardiovascular Surgical History: Reports: None Respiratory Surgical History: Reports: None GI Surgical History: Reports: Appendectomy, Colonoscopy, Polypectomy Female Surgical History: Reports: Tubal Ligation Endocrine Surgical History: Reports: None Neurological Surgical History: Reports: None Musculoskeletal Surgical History: Reports: None Oncologic Surgical History: Reports: None Social & Family History - Family History Family Medical History: No Pertinent Family History - Caffeine Use Caffeine Use: Reports: Coffee, Tea - Living Situation & Occupation Living situation: Reports: with Family Occupation: Retired ED ROS GENERAL - Review of Systems Review Of Systems: Comprehensive ROS is negative, except as noted in HPI. ED EXAM, GENERAL - Physical Exam Exam: See Below Exam Limited By: No Limitations General Appearance: Alert, WD/WN, Mild Distress, Other (discomfort) Ears: Hearing Grossly Normal Throat/Mouth: Normal Voice, No Airway Compromise Head: Atraumatic Neck: Non-Tender, Full Range of Motion Respiratory/Chest: No Respiratory Distress Cardiovascular: Regular Rate, Rhythm GI/Abdominal: Soft, Non-Tender (Female) Exam: Deferred Rectal (Female) Exam: Deferred Extremities: No Pedal Edema Neurological: Alert, Oriented, Normal Cognition, No Motor/Sensory Deficits Psychiatric: Flat Affect Skin Exam: Warm, Dry, Normal Color Lymphatic: No Adenopathy Departure - Departure Disposition: Home, Self-Care 01 Clinical Impression: Angina at rest Instructions: Angina, [id number] Forms: ED Department Discharge Additional Instructions: Return to the ER with any worsening of problems Follow up with your primary care facility Sepsis Event Note (ED) - Evaluation Sepsis Screening Result: No Definite Risk <Michelle Watkins - Last Filed: 10/09/20 11:32> ED HPI GENERAL MEDICAL PROBLEM - History of Present Illness Onset: Today, Sudden Course - Vital Signs Last Recorded V/S: Last Vital Signs Temp 96.9 F 10/09/20 07:50 Pulse 72 10/09/20 10:00 Resp 20 10/09/20 10:00 BP 112/44 L 10/09/20 10:00 Pulse Ox 97 10/09/20 10:00 - Orders/Labs/Meds Orders: Active Orders 24 hr Category Date Time Status Blood Glucose Check, Bedside [] ONETIME Care 10/09/20 05:50 Active EKG 12 Lead [EKG Documentation Completion] [RC] STAT Care 10/09/20 05:45 Active EKG Documentation Completion [RC] STAT Care 10/09/20 10:10 Active Sodium Chloride 0.9% [Normal Saline] 1,000 ml Med 10/09/20 06:15 Active IV ASDIRECTED Medication Orders Sodium Chloride (Normal Saline) 1,000 mls @ 500 mls/hr IV ASDIRECTED SUMMER Last Admin: 10/09/20 06:21 Dose: 500 mls/hr Documented by: TIFFANIE Labs: Laboratory Tests 10/09/20 10/09/20 10/09/20 Range/Units 06:10 06:10 06:10 WBC 13.7 H (5.0-10.0) 10^3/uL RBC 4.16 L (4.2-5.4) 10^6/uL Hgb 11.6 L (12.0-16.0) g/dL Hct 34.7 L (37.0-47.0) % MCV 83.4 (80-100) fL MCH 27.9 (27.0-34.0) pg MCHC 33.4 (33.0-35.0) g/dL Plt Count 392 (150-450) 10^3/uL Neut % (Auto) 71.4 (42.2-75.2) % Lymph % (Auto) 21.3 (20.5-50.1) % [place] % (Auto) 5.6 (2-8) % Eos % (Auto) 1.4 (1.0-3.0) % Baso % (Auto) 0.3 (0.0-1.0) % PT 9.8 (9.0-12.0) SEC INR 1.0 (0.9-1.2) APTT 24.5 (22.0-34.0) SEC Sodium 140 (136-145) mmol/L Potassium 2.9 L (3.5-5.1) mmol/L Chloride 102 (98-107) mmol/L Carbon Dioxide 25 (21-32) mmol/L Anion Gap 15.9 H (7-13) mEq/L BUN 18 (7-18) mg/dL Creatinine 0.97 (0.55-1.02) mg/dL Est Cr Clr Drug Dosing 38.61 mL/min Estimated GFR (MDRD) 55 BUN/Creatinine Ratio 18.6 (No establ ref range) Glucose 106 H (74-99) mg/dL Calcium 9.0 (8.5-10.1) mg/dL Total Bilirubin 0.5 (0.2-1.0) mg/dL AST 15 (15-37) U/L ALT 16 (14-59) U/L Alkaline Phosphatase 66 (46-116) U/L Troponin I < 0.017 (0.000-0.056) ng/mL Total Protein 7.1 (6.4-8.2) g/dL Albumin 3.4 (3.4-5.0) g/dL Globulin 3.7 Albumin/Globulin Ratio 0.9 /22/20 Range/Units 10:25 WBC (5.0-10.0) 10^3/uL RBC (4.2-5.4) 10^6/uL Hgb (12.0-16.0) g/dL Hct (37.0-47.0) % MCV (80-100) fL MCH (27.0-34.0) pg MCHC (33.0-35.0) g/dL Plt Count (150-450) 10^3/uL Neut % (Auto) (42.2-75.2) % Lymph % (Auto) (20.5-50.1) % [place] % (Auto) (2-8) % Eos % (Auto) (1.0-3.0) % Baso % (Auto) (0.0-1.0) % PT (9.0-12.0) SEC INR (0.9-1.2) APTT (22.0-34.0) SEC Sodium (136-145) mmol/L Potassium 3.9 (3.5-5.1) mmol/L Chloride (98-107) mmol/L Carbon Dioxide (21-32) mmol/L Anion Gap (7-13) mEq/L BUN (7-18) mg/dL Creatinine (0.55-1.02) mg/dL Est Cr Clr Drug Dosing mL/min Estimated GFR (MDRD) BUN/Creatinine Ratio (No establ ref range) Glucose (74-99) mg/dL Calcium (8.5-10.1) mg/dL Total Bilirubin (0.2-1.0) mg/dL AST (15-37) U/L ALT (14-59) U/L Alkaline Phosphatase (46-116) U/L Troponin I < 0.017 (0.000-0.056) ng/mL Total Protein (6.4-8.2) g/dL Albumin (3.4-5.0) g/dL Globulin Albumin/Globulin Ratio Meds: Medications Generic Name Dose Route Start Last Admin Trade Name Freq PRN Reason Stop Dose Admin Sodium Chloride 1,000 mls @ 500 mls/hr 10/09/20 06:15 10/09/20 06:21 Normal Saline IV 500 mls/hr ASDIRECTED SUMMER Administration Discontinued Medications Generic Name Dose Route Start Last Admin Trade Name Freq PRN Reason Stop Dose Admin Potassium Chloride 20 meq/ 100 mls @ 50 mls/hr 10/09/20 07:05 10/09/20 07:22 Premix IV 10/09/20 09:04 50 mls/hr ONETIME ONE Administration - Radiology Interpretation Free Text/Narrative:: Chest xray: PROCEDURE INFORMATION: Exam: XR Chest, 1 View Exam date and time: 10/09/2020 6:16 AM Age: 80 years old Clinical indication: Shortness of breath; Additional info: Pain SOB TECHNIQUE: Imaging protocol: XR of the chest Views: 1 view. COMPARISON: CR Chest 1V Frontal 09/22/2020 11:20 AM FINDINGS: Lungs: Unremarkable. No consolidation. Pleural space: Unremarkable. No pleural effusion. No pneumothorax. Heart/Mediastinum: Mild cardiomegaly. Bones/joints: Unremarkable. IMPRESSION: No acute findings. Thank you for allowing us to participate in the care of your patient. Dictated and Authenticated by: Hung David MD 10/09/2020 6:23 AM Central Time ([place] & [place]) See rad report - Re-Assessments/Exams Free Text/Narrative Re-Assessment/Exam: 10/09/20 11:00 Repeat troponin negative, repeat EKG has no change. Repeat Potassium has increased to 3.9. Patient informed of repeat labs and diagnostics. Patient encouraged to follow up with her primary care provider this week. Departure - Departure Time of Disposition: 11:00 Reason for Transfer *Q: Other Condition: Good Sepsis Event Note (ED) - Focused Exam Vital Signs: Vital Signs Temp Pulse Resp BP Pulse Ox 10/09/20 10:00 72 20 112/44 L 97 10/09/20 09:00 69 20 128/49 L 96 10/09/20 07:50 96.9 F 68 20 124/65 97 10/09/20 05:43 95.9 F L 62 16 142/61 H 97 - My Orders Last 24 Hours: My Active Orders 10/09/20 10:10 EKG Documentation Completion [RC] STAT - Assessment/Plan Last 24 Hours: My Active Orders 10/09/20 10:10 EKG Documentation Completion [RC] STAT
[2020-10-09] MEDS ORDERED: Sodium Chloride 0.9% 1,000 ML IV SCH (06:15)
--- NOTE | 2020-10-09 06:24 | CR ---
PROCEDURE INFORMATION: Exam: XR Chest, 1 View Exam date and time: 10/09/2020 6:16 AM Age: 80 years old Clinical indication: Shortness of breath; Additional info: Pain SOB TECHNIQUE: Imaging protocol: XR of the chest Views: 1 view. COMPARISON: CR Chest 1V Frontal 09/22/2020 11:20 AM FINDINGS: Lungs: Unremarkable. No consolidation. Pleural space: Unremarkable. No pleural effusion. No pneumothorax. Heart/Mediastinum: Mild cardiomegaly. Bones/joints: Unremarkable. IMPRESSION: No acute findings.
[2020-10-09 06:37] LABS: ANION GAP 15.9 mEq/L (7-13); CHLORIDE,CL 102 mmol/L (98-107); SODIUM,NA 140 mmol/L (136-145)
[2020-10-09 06:39] LABS: PTT,PARTIAL THROMBOPLSTIN TIME 24.5 SEC (22.0-34.0)
[2020-10-09] MEDS ORDERED: Potassium Chloride 20 MEQ in Premix Bag 1 BAG IV ONE (07:05)
[2020-10-09 10:58] VITALS: BP 112/44; PULSE 72
== END 2020-10-09 12:10 | disposition home or self-care (01) ==
LOC: DL.ED 05:42
DX: I20.9 Angina pectoris, unspecified (principal); E03.9 Hypothyroidism, unspecified; I12.9 Hypertensive chronic kidney disease with stage 1 through stage 4 chronic kidney disease, or unspecified chronic kidney disease; E11.22 Type 2 diabetes mellitus with diabetic chronic kidney disease; N18.9 Chronic kidney disease, unspecified; Z88.1 Allergy status to other antibiotic agents; Z88.8 Allergy status to other drugs, medicaments and biological substances; Z79.4 Long term (current) use of insulin; Z79.899 Other long term (current) drug therapy; Z98.51 Tubal ligation status; Z90.49 Acquired absence of other specified parts of digestive tract
CPT/HCPCS: 36415; 71045; 80053; 82962; 84132; 84484; 85025; 85610; 85730; 93005; 96365; 96366; 99285; J3480; J7030

== ENCOUNTER 2020-11-08 12:50 | Emergency (ER) | payer MEDICARE, BC ==
--- NOTE | 2020-11-08 13:25 | EDM.PDOC ---
<Yue Simpson - Last Filed: 11/08/20 18:58> ED HPI GENERAL MEDICAL PROBLEM - General Chief Complaint: Chest Pain Stated Complaint: CHEST PAIN Time Seen by Provider: 11/08/20 13:10 - Related Data Allergies Allergy/AdvReac Type Severity Reaction Status Date / Time amoxicillin [Amoxicillin] Allergy Nausea Verified 11/08/20 13:15 amoxicillin trihydrate Allergy Nausea Verified 11/08/20 13:15 [From Augmentin] azithromycin [From Zithromax] Allergy Nausea Verified 11/08/20 13:15 lisinopril Allergy Indigestion Verified 11/08/20 13:15 losartan [Losartan] Allergy Nervousness Verified 11/08/20 13:15 potassium clavulanate Allergy Nausea Verified 11/08/20 13:15 [From Augmentin] pravastatin Allergy Nausea Verified 11/08/20 13:15 simvastatin Allergy Nausea Verified 11/08/20 13:15 valsartan [From Diovan] Allergy Lethargy Verified 11/08/20 13:15 aliskiren hemifumarate AdvReac Stomach Verified 11/08/20 13:15 [From Tekturna] Upset Home Meds: Home Meds Insulin Glarg,Human.Rec.Analog [Lantus Solostar] 23 units INJECT BID 04/03/14 [History] Levothyroxine [Synthroid] 88 mcg PO ACBRK 04/03/14 [History] amLODIPine Besylate [Amlodipine Besylate] 5 mg PO DAILY 04/03/14 [History] hydroCHLOROthiazide [Hydrochlorothiazide] 12.5 mg PO DAILY 04/03/14 [History] metFORMIN [Glucophage] 1,000 mg PO BID 04/03/14 [History] Triamcinolone Acetonide [Triamcinolone Acetonide 0.1% Crm] 1 applic TOP BID PRN 05/03/15 [History] Aspirin [Halfprin] 81 mg PO DAILY 11/08/20 [History] Clopidogrel Bisulfate [Plavix] 75 mg PO DAILY 11/08/20 [History] Metoprolol Tartrate [Lopressor] 12.5 mg PO BID 11/08/20 [History] Nitroglycerin [Nitrostat] 0.4 mg SL [id number] 11/08/20 [History] atorvaSTATin [Lipitor] 40 mg PO BEDTIME 11/08/20 [History] Course - Re-Assessments/Exams Free Text/Narrative Re-Assessment/Exam: 1345 assumed pt care. report from NAVYA Coto. HPI per report to this song writer is a pressure like pain in epigastric area starting around 0830 this am that was unrelieved by NTG x 4 doses. BP remains elevated 155/78. pt reports having this pressure every morning when she awakens and is most often relieved after breakfast, however on few occasions the pressure/pain worsens after a meal. pt denies GI or GERD hx. states she will occasionally take a TUMS for relief. this is the second time the patient has presented to the ER since a NSTEMI (09/22) with this same epigastric pressure c/o. previous ER work-up (10/09) was negative for cardiac findings. pt has not followed-up with CV since stenting and OK on 09/22. pt states she was to see cardiology today, but cancelled and came to the ER instead. discussed with pt the possibility of the most recent episodes of being GI in nature, such as GERD or an ulcer. pt denies hematemesis or hematochezia. discussed trial of GI cocktail and Protonix 40 mg IV to see if she has relief of symptoms. agreeable to plan. 1500 epigastric pressure relieved. pt now symptom free. Mg 1.4. discussed with pt IV administration of Mg 2 gm IV and will recheck troponin and EKG @ 1750. agreeable to plan. Departure - Departure Time of Disposition: 18:58 Disposition: Home, Self-Care 01 Condition: Good Clinical Impression: Atypical chest pain, Indigestion Instructions: Indigestion, [id number], Nonspecific Chest Pain, Adult Forms: ED Department Discharge Additional Instructions: 1. RX: Omeprazole 20 mg by mouth daily 30 minutes before breakfast. 2. Plan to follow-up with GI for upper GI work-up. 3. Follow-up with cardiology as previously planned. 4. Return to ER if symptoms worsen. <Michelle Watkins - Last Filed: 11/09/20 08:40> ED HPI GENERAL MEDICAL PROBLEM - General Source of Information: Reports: Patient, RN, RN Notes Reviewed History Limitations: Reports: No Limitations - History of Present Illness INITIAL COMMENTS - FREE TEXT/NARRATIVE: Pt is an 80 year old female who presents to ER with c/o chest pressure. Patient states the pain began shortly after she awoke this morning, about 0830. She states the pain is like a "quivering" inside her, rates the pain 8/10 at its worst. She denies any radiation of the pain. States she has taken Nitroglycerin x4 prior to coming to the ER, with the last one being at 1230. She states minimal improvement from the Nitro. Patient states she had an OK in September, and had a stent placed. Patient has had a few episodes of chest pain since that time. Denies N/V/D, fever or chills. Admits to SOB with chest pains intermittently. 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: Musculoskeletal History: Reports: Back Pain, Chronic, Fracture, Other (See Below) Other Musculoskeletal History: DDD LUMBAR; LUMBAR RADICULOPATHY; WRIST FRACTURE Neurological History: Reports: None Psychiatric History: Reports: None Endocrine/Metabolic History: Reports: Diabetes, Type II, Hypothyroidism, Osteopenia, Other (See Below) Other Endocrine/Metabolic History: VITAMIN B12 Hematologic History: Reports: B12 Deficiency Immunologic History: Reports: None Oncologic (Cancer) History: Reports: None Dermatologic History: Reports: None - Infectious Disease History Infectious Disease History: Reports: None - Past Surgical History Head Surgeries/Procedures: Reports: None HEENT Surgical History: Reports: Cataract Surgery Other HEENT Surgeries/Procedures: BILAT EYE CATARACT EXTRACTION Cardiovascular Surgical History: Reports: None Respiratory Surgical History: Reports: None GI Surgical History: Reports: Appendectomy, Colonoscopy, Polypectomy Female Surgical History: Reports: Tubal Ligation Endocrine Surgical History: Reports: None Neurological Surgical History: Reports: None Musculoskeletal Surgical History: Reports: None Oncologic Surgical History: Reports: None Social & Family History - Family History Family Medical History: No Pertinent Family History - Caffeine Use Caffeine Use: Reports: Coffee, Tea - Living Situation & Occupation Living situation: Reports: with Family Occupation: Retired ED ROS GENERAL - Review of Systems Review Of Systems: Comprehensive ROS is negative, except as noted in HPI. ED EXAM, GENERAL - Physical Exam Exam: See Below Exam Limited By: No Limitations General Appearance: Alert, WD/WN, No Apparent Distress, Anxious Eye Exam: Left Eye: Other (hemorrhage since this past Saturday), Bilateral Eye: EOMI Ears: Normal External Exam, Hearing Grossly Normal Nose: Normal Inspection Throat/Mouth: Normal Inspection, Normal Voice, No Airway Compromise Head: Atraumatic, Normocephalic Neck: Normal Inspection, Supple, Non-Tender, Full Range of Motion Respiratory/Chest: No Respiratory Distress, Lungs Clear, Normal Breath Sounds, No Accessory Muscle Use, Chest Non-Tender Cardiovascular: Normal Peripheral Pulses, Regular Rate, Rhythm, No Edema, No Gallop, No JVD, No Murmur, No Rub Peripheral Pulses: 2+: Radial (L), Radial (R) GI/Abdominal: Normal Bowel Sounds, Soft, Non-Tender (Female) Exam: Deferred Rectal (Female) Exam: Deferred Back Exam: Normal Inspection, Full Range of Motion, NT Extremities: Normal Inspection, Normal Range of Motion, Non-Tender, Normal Capillary Refill, No Pedal Edema Neurological: Alert, Oriented, CN II-XII Intact, Normal Cognition, Normal Gait, Normal Reflexes, No Motor/Sensory Deficits Psychiatric: Normal Affect, Normal Mood, Anxious Skin Exam: Warm, Dry, Intact, Normal Color, No Rash Lymphatic: No Adenopathy #1 Interpretation EKG Date: 11/08/20 Time: 13:06 Rhythm: NSR Rate (Beats/Min): 68 P-Wave: Present QRS: RBBB ST-T: Normal QT: Normal EKG Interpretation Comments: First degree AV Block Course - Vital Signs Last Recorded V/S: Last Vital Signs Temp 97.0 F 11/08/20 18:30 Pulse 72 11/08/20 18:30 Resp 20 11/08/20 18:30 BP 137/68 11/08/20 18:30 Pulse Ox 95 11/08/20 18:30 - Orders/Labs/Meds Labs: Laboratory Tests 11/08/20 11/08/20 11/08/20 Range/Units 13:04 13:04 13:04 WBC 9.4 (5.0-10.0) 10^3/uL RBC 4.37 (4.2-5.4) 10^6/uL Hgb 12.2 (12.0-16.0) g/dL Hct 36.2 L (37.0-47.0) % MCV 82.8 (80-100) fL MCH 27.9 (27.0-34.0) pg MCHC 33.7 (33.0-35.0) g/dL Plt Count 382 (150-450) 10^3/uL Neut % (Auto) 65.2 (42.2-75.2) % Lymph % (Auto) 27.5 (20.5-50.1) % [place] % (Auto) 5.7 (2-8) % Eos % (Auto) 1.3 (1.0-3.0) % Baso % (Auto) 0.3 (0.0-1.0) % PT 10.3 (9.0-12.0) SEC INR 1.1 (0.9-1.2) APTT 23.9 (22.0-34.0) SEC Sodium 137 (136-145) mmol/L Potassium 3.6 (3.5-5.1) mmol/L Chloride 102 (98-107) mmol/L Carbon Dioxide 28 (21-32) mmol/L Anion Gap 10.6 (7-13) mEq/L BUN 14 (7-18) mg/dL Creatinine 0.98 (0.55-1.02) mg/dL Est Cr Clr Drug Dosing 38.22 mL/min Estimated GFR (MDRD) 54 BUN/Creatinine Ratio 14.3 (No establ ref range) Glucose 175 H (74-99) mg/dL Lactic Acid (0.4-2.0) mmol/L Calcium 9.1 (8.5-10.1) mg/dL Magnesium 1.4 L (1.8-2.4) mg/dL Total Bilirubin 0.5 (0.2-1.0) mg/dL AST 15 (15-37) U/L ALT 22 (14-59) U/L Alkaline Phosphatase 70 (46-116) U/L Troponin I < 0.017 (0.000-0.056) ng/mL C-Reactive Protein 0.7 (0.0-0.9) mg/dL B-Natriuretic Peptide 78 (0-100) pg/ml Total Protein 7.6 (6.4-8.2) g/dL Albumin 4.1 (3.4-5.0) g/dL Globulin 3.5 Albumin/Globulin Ratio 1.2 Urine Color (YELLOW) Urine Appearance (CLEAR) Urine pH (5.0-9.0) Ur Specific [place] (1.005-1.030) Urine Protein (NEGATIVE) Urine Glucose (UA) (NEGATIVE) Urine Ketones (NEGATIVE) Urine Occult Blood (NEGATIVE) Urine Nitrite (NEGATIVE) Urine Bilirubin (NEGATIVE) Urine Urobilinogen (0.2-1.0) mg/dL Ur Leukocyte Esterase (NEGATIVE) 11/08/20 11/08/20 11/08/20 Range/Units 13:04 14:43 17:48 WBC (5.0-10.0) 10^3/uL RBC (4.2-5.4) 10^6/uL Hgb (12.0-16.0) g/dL Hct (37.0-47.0) % MCV (80-100) fL MCH (27.0-34.0) pg MCHC (33.0-35.0) g/dL Plt Count (150-450) 10^3/uL Neut % (Auto) (42.2-75.2) % Lymph % (Auto) (20.5-50.1) % [place] % (Auto) (2-8) % Eos % (Auto) (1.0-3.0) % Baso % (Auto) (0.0-1.0) % PT (9.0-12.0) SEC INR (0.9-1.2) APTT (22.0-34.0) SEC Sodium (136-145) mmol/L Potassium (3.5-5.1) mmol/L Chloride (98-107) mmol/L Carbon Dioxide (21-32) mmol/L Anion Gap (7-13) mEq/L BUN (7-18) mg/dL Creatinine (0.55-1.02) mg/dL Est Cr Clr Drug Dosing mL/min Estimated GFR (MDRD) BUN/Creatinine Ratio (No establ ref range) Glucose (74-99) mg/dL Lactic Acid 1.7 (0.4-2.0) mmol/L Calcium (8.5-10.1) mg/dL Magnesium 2.1 (1.8-2.4) mg/dL Total Bilirubin (0.2-1.0) mg/dL AST (15-37) U/L ALT (14-59) U/L Alkaline Phosphatase (46-116) U/L Troponin I < 0.017 (0.000-0.056) ng/mL C-Reactive Protein (0.0-0.9) mg/dL B-Natriuretic Peptide (0-100) pg/ml Total Protein (6.4-8.2) g/dL Albumin (3.4-5.0) g/dL Globulin Albumin/Globulin Ratio Urine Color Yellow (YELLOW) Urine Appearance Clear (CLEAR) Urine pH 7.5 (5.0-9.0) Ur Specific [place] 1.020 (1.005-1.030) Urine Protein Negative (NEGATIVE) Urine Glucose (UA) Negative (NEGATIVE) Urine Ketones Negative (NEGATIVE) Urine Occult Blood Negative (NEGATIVE) Urine Nitrite Negative (NEGATIVE) Urine Bilirubin Negative (NEGATIVE) Urine Urobilinogen 0.2 (0.2-1.0) mg/dL Ur Leukocyte Esterase Negative (NEGATIVE) Meds: Medications Discontinued Medications Generic Name Dose Route Start Last Admin Trade Name Kangq PRN Reason Stop Dose Admin Al Hydroxide/Mg Hydroxide 30 ml 11/08/20 13:53 11/08/20 14:31 Gi Cocktail PO 11/08/20 13:54 30 ml ONETIME ONE Administration Magnesium Sulfate 2 gm in 50 mls @ 50 mls/hr 11/08/20 14:48 11/08/20 15:29 Magnesium Sulfate In Water Premix IV 11/08/20 15:47 50 mls/hr ONETIME ONE Administration Pantoprazole Sodium 40 mg 11/08/20 13:56 11/08/20 14:29 Protonix Iv IVPUSH 11/08/20 13:57 40 mg ONETIME ONE Administration - Radiology Interpretation Free Text/Narrative:: Chest xray: See rad report Sepsis Event Note (ED) - Evaluation Sepsis Screening Result: No Definite Risk
[2020-11-08 13:33] LABS: ANION GAP 10.6 mEq/L (7-13); CHLORIDE,CL 102 mmol/L (98-107); SODIUM,NA 137 mmol/L (136-145)
[2020-11-08 13:36] LABS: PTT,PARTIAL THROMBOPLSTIN TIME 23.9 SEC (22.0-34.0)
--- NOTE | 2020-11-08 13:55 | CR ---
EXAMINATION: Chest 1V Frontal SEX: Female AGE: 80 years CLINICAL HISTORY: 80-year-old female chest pain. Comparison exam September,. 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 Chronic mild left ventricular configuration. No new signs of pulmonary vascular congestion, cephalization of flow, alveolar edema or dependent pleural fluid accumulation (effusion) since September,. 2. No new lung mass, hilar lymphadenopathy, focal lobar consolidation (infiltrate/atelectasis) or peripheral "groundglass" interstitial densities. 3. No pneumothorax or pneumomediastinum. Midline tracheal bronchial airway unremarkable. CONCLUSION: No new signs of heart failure, lung mass or pneumonia.
[2020-11-08] MEDS ORDERED: Pantoprazole 40 MG in Sodium Chloride 0.9% 100 ML IV SCH (14:00)
[2020-11-08] MEDS: Pantoprazole 40 MG Vial IVPUSH ONE (14:29)
[2020-11-08] MEDS: GI Cocktail Oral Solution 30 ML PO ONE (14:31)
[2020-11-08] MEDS: Magnesium Sulfate/Water 2 GM/50 ML BAG IV ONE (15:29)
[2020-11-08 18:35] VITALS: BP 137/68; PULSE 72
== END 2020-11-08 19:07 | disposition home or self-care (01) ==
LOC: DL.ED 12:50
DX: R07.89 Other chest pain (principal); K30 Functional dyspepsia; E03.9 Hypothyroidism, unspecified; E78.00 Pure hypercholesterolemia, unspecified; I12.9 Hypertensive chronic kidney disease with stage 1 through stage 4 chronic kidney disease, or unspecified chronic kidney disease; N18.9 Chronic kidney disease, unspecified; E11.22 Type 2 diabetes mellitus with diabetic chronic kidney disease; Z88.1 Allergy status to other antibiotic agents; Z88.8 Allergy status to other drugs, medicaments and biological substances; Z79.82 Long term (current) use of aspirin; Z79.02 Long term (current) use of antithrombotics/antiplatelets; Z79.4 Long term (current) use of insulin; Z79.899 Other long term (current) drug therapy
CPT/HCPCS: 36415; 71045; 80053; 81003; 83605; 83735; 83880; 84484; 85025; 85610; 85730; 86140; 93005; 96365; 96375; 99285; A9270; C9113; J3475

== ENCOUNTER 2020-11-17 14:04 | Emergency (ER) | payer MEDICARE, BC ==
--- NOTE | 2020-11-17 14:09 | EDM.PDOC ---
ED HPI GENERAL MEDICAL PROBLEM - General Chief Complaint: Trauma Stated Complaint: TRAUMA CODE Time Seen by Provider: 11/17/20 14:04 Source of Information: Reports: Patient, EMS, Old Records, RN, RN Notes Reviewed History Limitations: Reports: No Limitations - History of Present Illness INITIAL COMMENTS - FREE TEXT/NARRATIVE: Pt arrives to ER by [facility] with report that she slipped on the ice, fell and struck her left forehead on the ground. Pt states she was lightheaded, and has recurring episodes of lightheadedness for many months. Pt believes that she had a brief LOC. Denies chest pain, or any other areas of injury. TRAUMA NOTES: ARRIVAL TIME: 1404HRS C-COLLAR STATUS: Present on arrival to ER, placed by EMS. 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: IV/IO, Other Medication(s) (Zofran 4mg IVP) - Related Data Allergies Allergy/AdvReac Type Severity Reaction Status Date / Time amoxicillin [Amoxicillin] Allergy Nausea Verified 11/08/20 13:15 amoxicillin trihydrate Allergy Nausea Verified 11/08/20 13:15 [From Augmentin] azithromycin [From Zithromax] Allergy Nausea Verified 11/08/20 13:15 lisinopril Allergy Indigestion Verified 11/08/20 13:15 losartan [Losartan] Allergy Nervousness Verified 11/08/20 13:15 potassium clavulanate Allergy Nausea Verified 11/08/20 13:15 [From Augmentin] pravastatin Allergy Nausea Verified 11/08/20 13:15 simvastatin Allergy Nausea Verified 11/08/20 13:15 valsartan [From Diovan] Allergy Lethargy Verified 11/08/20 13:15 aliskiren hemifumarate AdvReac Stomach Verified 11/08/20 13:15 [From Tekturna] Upset Home Meds: Home Meds Insulin Glarg,Human.Rec.Analog [Lantus Solostar] 23 units INJECT BID 04/03/14 [History] Levothyroxine [Synthroid] 88 mcg PO ACBRK 04/03/14 [History] amLODIPine Besylate [Amlodipine Besylate] 5 mg PO DAILY 04/03/14 [History] hydroCHLOROthiazide [Hydrochlorothiazide] 12.5 mg PO DAILY 04/03/14 [History] metFORMIN [Glucophage] 1,000 mg PO BID 04/03/14 [History] Triamcinolone Acetonide [Triamcinolone Acetonide 0.1% Crm] 1 applic TOP BID PRN 05/03/15 [History] Aspirin [Halfprin] 81 mg PO DAILY 11/08/20 [History] Clopidogrel Bisulfate [Plavix] 75 mg PO DAILY 11/08/20 [History] Metoprolol Tartrate [Lopressor] 12.5 mg PO BID 11/08/20 [History] Nitroglycerin [Nitrostat] 0.4 mg SL [id number] 11/08/20 [History] atorvaSTATin [Lipitor] 40 mg PO BEDTIME 11/08/20 [History] Past Medical History HEENT History: Reports: Sinusitis Other HEENT History: DIABETIC EYE EXAM EVERY 3 MONTHS Cardiovascular History: Reports: High Cholesterol, Hypertension, SD, Stents, Other (See Below) Other Cardiovascular History: IRREGULAR RHYTHM Respiratory History: Reports: None Other Respiratory History: HAS RECEIVED PNEMO VAX Gastrointestinal History: Reports: Colon Polyp Genitourinary History: Reports: Chronic Renal Insuffiency Other Genitourinary History: CALCUS OF URETER, CKD 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: Musculoskeletal History: Reports: Back Pain, Chronic, Fracture, Other (See Below) Other Musculoskeletal History: DDD LUMBAR; LUMBAR RADICULOPATHY; WRIST FRACTURE Neurological History: Reports: None Psychiatric History: Reports: None Endocrine/Metabolic History: Reports: Diabetes, Type II, Hypothyroidism, Osteopenia, Other (See Below) Other Endocrine/Metabolic History: VITAMIN B12 Hematologic History: Reports: B12 Deficiency Immunologic History: Reports: None Oncologic (Cancer) History: Reports: None Dermatologic History: Reports: None - Infectious Disease History Infectious Disease History: Reports: None - Past Surgical History Head Surgeries/Procedures: Reports: None HEENT Surgical History: Reports: Cataract Surgery Other HEENT Surgeries/Procedures: BILAT EYE CATARACT EXTRACTION Cardiovascular Surgical History: Reports: Coronary Artery Stent Other Cardiovascular Surgeries/Procedures: 1 stent on September 23 2020 Respiratory Surgical History: Reports: None GI Surgical History: Reports: Appendectomy, Colonoscopy, Polypectomy Female Surgical History: Reports: Tubal Ligation Endocrine Surgical History: Reports: None Neurological Surgical History: Reports: None Musculoskeletal Surgical History: Reports: None Oncologic Surgical History: Reports: None Social & Family History - Family History Family Medical History: No Pertinent Family History - Caffeine Use Caffeine Use: Reports: None - Living Situation & Occupation Living situation: Reports: with Family Occupation: Retired Review of Systems - Review of Systems Review Of Systems: Comprehensive ROS is negative, except as noted in HPI. ED EXAM, GENERAL - Physical Exam Exam: See Below Free Text/Narrative:: PRIMARY TRAUMA SURVEY (1406hrs) AIRWAY: Patent nasal and oral airways. BREATHING: Spontaneous respirations with clear B/L breath sounds. CIRCULATION: Heart RRR with occ. extra beats, intact distal pulses at all four extremities, no cyanosis. DEFORMITY/DISABILITY: Head is NC with a 9cm linear laceration to the left frontal scalp/forehead. C-collar not removed. Chest nontender. Abdomen benign to exam. Pelvis stable and nontender. Hips nontender. No long bone deformities. No active bleeding. No neuro. deficits. EXPOSURE: Skin warm, and dry. SECONDARY TRAUMA SURVEY FOLLOWS (1520hrs) Exam Limited By: No Limitations General Appearance: Alert, Anxious, Mild Distress (Emotional) Eye Exam: Bilateral Eye: EOMI, Normal Inspection, PERRL Ears: Normal External Exam, Hearing Grossly Normal, Other (No hemotympanum B/L) Nose: Normal Inspection, Normal Mucosa, No Blood Throat/Mouth: Normal Inspection, Normal Lips, Normal Voice, No Airway Compromise Head: Normocephalic, Other (Laceration as noted in primary survey.) Neck: Other (C-spine cleared by CT scan. C-collar removed by RN, at 1536HRS.) Respiratory/Chest: No Respiratory Distress, Lungs Clear, Normal Breath Sounds, No Accessory Muscle Use, Chest Non-Tender Cardiovascular: Normal Peripheral Pulses, Regular Rate, Rhythm, No Edema, No JVD, Extra Beats GI/Abdominal: Normal Bowel Sounds, Soft, Non-Tender, No Organomegaly, No Distention, No Abnormal Bruit, No Mass (Female) Exam: Deferred Rectal (Female) Exam: Deferred Back Exam: Normal Inspection, Full Range of Motion. No: CVA Tenderness (L), CVA Tenderness (R) Extremities: Normal Inspection, Normal Range of Motion, Non-Tender, Normal Capil alexis Refill, No Pedal Edema Neurological: Alert, Oriented, CN II-XII Intact, Normal Cognition, No Motor/Sensory Deficits, Other (GCS 15 at 1HR postarrival) Psychiatric: Anxious, Tearful Skin Exam: Warm, Dry, Intact, Normal Color, No Rash ED TRAUMA PROCEDURES - Laceration/Wound Repair Left Forehead Lac/Wound Length In cm: 9 (active bleeding) Appearance: Linear, Clean Distal NVT: Neuro & Vascular Intact Anesthetic Type: Local Local Anesthesia - Lidocaine (Xylocaine): 1% Plain Local Anesthetic Volume: Other (10cc) Skin Prep: Chlorhexidine (Hibiciens), Saline, Sterile Drape Saline Irrigation (cc's): 1,000 Exploration/Debridement/Repair: Wound Explored, In a Bloodless Field, Explored to Base, Minimal Debridement, Moderately Undermined Closed With: Sutures Suture Size: 4-0 # of Sutures: 13 Suture Type: Running Drain Placement: No Sterile Dressing Applied: Nurse Tetanus Status Addressed: Yes (TDAP given) Complications: No #1 Interpretation EKG Date: 11/17/20 Time: 14:46 Rhythm: Other (sinus rhythm) Rate (Beats/Min): 64 [place]: LAD-Left [place] Deviation P-Wave: Present (Mobitz II AV block) QRS: RBBB ST-T: Other (lateral T wave inversion) QT: Prolonged Comparison: Change From Previous EKG Course - Vital Signs Last Recorded V/S: See paper trauma chart for VS, reviewed by me. - Orders/Labs/Meds Orders: Active Orders 24 hr Category Date Time Status Blood Glucose Check, Bedside [RC] ONETIME Care 11/17/20 14:10 Active EKG 12 Lead [EKG Documentation Completion] [RC] STAT Care 11/17/20 14:10 Active Vaccines to be Administered [RC] PER UNIT ROUTINE Care 11/17/20 14:11 Active DRUG SCREEN URINE BIORAD [URCHEM] Stat Lab 11/17/20 14:10 Ordered INR,PT,PROTHROMBIN TIME [COAG] Stat Lab 11/17/20 15:44 Ordered Labs: Laboratory Tests 11/17/20 11/17/20 11/17/20 Range/Units 14:14 14:14 14:14 WBC 12.1 H (5.0-10.0) 10^3/uL RBC 4.13 L (4.2-5.4) 10^6/uL Hgb 11.7 L (12.0-16.0) g/dL Hct 33.9 L (37.0-47.0) % MCV 82.1 (80-100) fL MCH 28.3 (27.0-34.0) pg MCHC 34.5 (33.0-35.0) g/dL Plt Count 382 (150-450) 10^3/uL Neut % (Auto) 49.2 (42.2-75.2) % Lymph % (Auto) 42.9 (20.5-50.1) % [place] % (Auto) 6.4 (2-8) % Eos % (Auto) 1.2 (1.0-3.0) % Baso % (Auto) 0.3 (0.0-1.0) % APTT 21.8 L (22.0-34.0) SEC Sodium 138 (136-145) mmol/L Potassium 3.1 L (3.5-5.1) mmol/L Chloride 100 (98-107) mmol/L Carbon Dioxide 19 L (21-32) mmol/L Anion Gap 22.1 H (7-13) mEq/L BUN 24 H (7-18) mg/dL Creatinine 1.23 H (0.55-1.02) mg/dL Est Cr Clr Drug Dosing TNP Estimated GFR (MDRD) 42 BUN/Creatinine Ratio 19.5 (No establ ref range) Glucose 195 H (74-99) mg/dL Calcium 9.2 (8.5-10.1) mg/dL Total Bilirubin 0.6 (0.2-1.0) mg/dL AST 22 (15-37) U/L ALT 23 (14-59) U/L Alkaline Phosphatase 65 (46-116) U/L Troponin I < 0.017 (0.000-0.056) ng/mL B-Natriuretic Peptide 116 H (0-100) pg/ml Total Protein 7.4 (6.4-8.2) g/dL Albumin 3.9 (3.4-5.0) g/dL Globulin 3.5 Albumin/Globulin Ratio 1.1 Lipase 57 L (73-393) U/L Ethyl Alcohol < 3 (0) mg/dL Meds: Medications Discontinued Medications Generic Name Dose Route Start Last Admin Trade Name Freq PRN Reason Stop Dose Admin Diphtheria/Tetanus/Acell Pertussis 0.5 ml 11/17/20 14:11 Boostrix IM 11/17/20 14:12 .ONCE ONE Sodium Chloride 1,000 mls @ 999 mls/hr 11/17/20 14:13 Normal Saline IV 11/17/20 15:13 .BOLUS ONE Lidocaine HCl 30 ml 11/17/20 14:11 Xylocaine-Mpf 1% INJECT 11/17/20 14:12 ONETIME ONE Ondansetron HCl 4 mg 11/17/20 14:20 Zofran IV 11/17/20 14:21 ONETIME ONE - Radiology Interpretation Free Text/Narrative:: Chest x-ray: No acute findings. Mild cardiomegaly. See rad report. CT pelvis: No acute osseous abnormality. L4-L5 severe spinal canal stenosis. L5-S1 advanced degenerative disc disease. Chronic findings of appendectomy and diverticulosis. See rad report. CT head: No acute intracranial abnormality. See rad report. CT cervical spine: No acute findings. See rad report. - Re-Assessments/Exams Free Text/Narrative Re-Assessment/Exam: 11/17/20 15:53 Reassessment prior to disposition/transfer, pt remains awake, alert, and with GCS 15. She continues to c/o nausea and lightheadedness. Departure - Departure Time of Disposition: 15:54 Disposition: DC/Tfer to [facility] Condition: Fair Clinical Impression: Mobitz type 2 second degree atrioventricular block Concussion with loss of consciousness <= 30 min Qualifiers: Encounter type: initial encounter Qualified Code(s): S06.0X1A - Concussion with loss of consciousness of 30 minutes or less, initial encounter Syncope Qualifiers: Syncope type: unspecified Qualified Code(s): R55 - Syncope and collapse Scalp laceration Qualifiers: Encounter type: initial encounter Qualified Code(s): S01.01XA - Laceration without foreign body of scalp, initial encounter - Discharge Information *PRESCRIPTION DRUG MONITORING PROGRAM REVIEWED*: Not Applicable *COPY OF PRESCRIPTION DRUG MONITORING REPORT IN PATIENT JR: Not Applicable Forms: ED Department Discharge, Interfacility Transfer EMTALA - My Orders Last 24 Hours: My Active Orders 11/17/20 14:10 Blood Glucose Check, Bedside [RC] ONETIME EKG 12 Lead [EKG Documentation Completion] [RC] STAT DRUG SCREEN URINE BIORAD [URCHEM] Stat 11/17/20 14:11 Vaccines to be Administered [RC] PER UNIT ROUTINE 11/17/20 15:44 INR,PT,PROTHROMBIN TIME [COAG] Stat - Assessment/Plan Last 24 Hours: My Active Orders 11/17/20 14:10 Blood Glucose Check, Bedside [RC] ONETIME EKG 12 Lead [EKG Documentation Completion] [RC] STAT DRUG SCREEN URINE BIORAD [URCHEM] Stat 11/17/20 14:11 Vaccines to be Administered [RC] PER UNIT ROUTINE 11/17/20 15:44 INR,PT,PROTHROMBIN TIME [COAG] Stat
[2020-11-17] MEDS ORDERED: Sodium Chloride 0.9% 1,000 ML IV ONE (14:13)
[2020-11-17] MEDS: Ondansetron 4 MG/2 ML SDV IV ONE (14:33)
[2020-11-17 14:45] LABS: ANION GAP 22.1 mEq/L (7-13); CHLORIDE,CL 100 mmol/L (98-107); SODIUM,NA 138 mmol/L (136-145)
[2020-11-17] MEDS: Diphtheria,Pertussis(Acell),Tetanus Vaccine 0.5 ML Syringe IM ONE (15:02)
--- NOTE | 2020-11-17 15:02 | CT ---
PROCEDURE INFORMATION: Exam: CT Cervical Spine Without Contrast Exam date and time: 11/17/2020 2:37 PM Age: 80 years old Clinical indication: Injury or trauma; Fall; Blunt trauma; Additional info: Trauma: Fall, head injury TECHNIQUE: Imaging protocol: Computed tomography images of the cervical spine without contrast. Radiation optimization: All CT scans at this facility use at least one of these dose optimization techniques: automated exposure control; mA and/or kV adjustment per patient size (includes targeted exams where dose is matched to clinical indication); or iterative reconstruction. COMPARISON: No relevant prior studies available. FINDINGS: Vertebrae: No acute fracture. Mild anterolisthesis of C3 on C4. Otherwise normal alignment. C2-C3: No significant disc protrusion. No severe spinal canal stenosis. No significant neural foraminal narrowing. C3-C4: No significant disc protrusion. No severe spinal canal stenosis. No significant neural foraminal narrowing. C4-C5: No significant disc protrusion. No severe spinal canal stenosis. No significant neural foraminal narrowing. C5-C6: No significant disc protrusion. No severe spinal canal stenosis. No significant neural foraminal narrowing. C6-C7: No significant disc protrusion. No severe spinal canal stenosis. No significant neural foraminal narrowing. C7-T1: No significant disc protrusion. No severe spinal canal stenosis. No significant neural foraminal narrowing. Soft tissues: Unremarkable. Lungs: Lung apices are normal. IMPRESSION: No acute findings.
[2020-11-17] MEDS: Lidocaine 1% 30 ML SDV INJECT ONE (15:05)
--- NOTE | 2020-11-17 15:08 | CT ---
PROCEDURE INFORMATION: Exam: CT Head Without Contrast Exam date and time: 11/17/2020 2:37 PM Age: 80 years old Clinical indication: Injury or trauma; Fall; Blunt trauma (contusions or hematomas); Consciousness not specified; Additional info: Trauma: Fall, head injury TECHNIQUE: Imaging protocol: Computed tomography of the head without contrast. Radiation optimization: All CT scans at this facility use at least one of these dose optimization techniques: automated exposure control; mA and/or kV adjustment per patient size (includes targeted exams where dose is matched to clinical indication); or iterative reconstruction. COMPARISON: CT Head wo Cont 09/22/2020 11:50 AM FINDINGS: Brain: Normal. No hemorrhage. Mild cortical atrophy with white matter microischemic change. No mass effect. Cerebral ventricles: No ventriculomegaly. Bones/joints: Unremarkable. No acute fracture. Paranasal sinuses: Visualized sinuses are unremarkable. No fluid levels. Mastoid air cells: Visualized mastoid air cells are well aerated. Soft tissues: Large left frontal scalp hematoma. IMPRESSION: No acute intracranial abnormality.
--- NOTE | 2020-11-17 15:17 | CT ---
PROCEDURE INFORMATION: Exam: CT Pelvis Without Contrast; Skeletal Exam date and time: 11/17/2020 2:37 PM Age: 80 years old Clinical indication: Hip pain and pelvic pain; Bilateral; Additional info: Trauma: Fall TECHNIQUE: Imaging protocol: Computed tomography images of the pelvis without contrast. Exam focused on the skeletal structures. Radiation optimization: All CT scans at this facility use at least one of these dose optimization techniques: automated exposure control; mA and/or kV adjustment per patient size (includes targeted exams where dose is matched to clinical indication); or iterative reconstruction. COMPARISON: CT Abdomen Pelvis w Cont 05/30/2020 12:58 PM FINDINGS: Bowel: Diverticulosis. Appendectomy. Appendix: Metallic sutures in right lower quadrant compatible with appendectomy. Intraperitoneal space: No free fluid Bones/joints: No acute fracture or dislocation. Hip joints are preserved. Femoral heads are well seated within the acetabuli. Proximal femoral shaft is intact. L4-S1 facet arthropathy. L4-L5 severe spinal canal stenosis. Severe L5-S1 degenerative disc disease. Soft tissues: Unremarkable. IMPRESSION: 1. No acute osseous abnormality. 2. L4-L5 severe spinal canal stenosis. 3. L5-S1 advanced degenerative disc disease. 4. Chronic findings of appendectomy and diverticulosis.
--- NOTE | 2020-11-17 15:19 | CR ---
PROCEDURE INFORMATION: Exam: XR Chest, 1 View Exam date and time: 11/17/2020 2:53 PM Age: 80 years old Clinical indication: Injury or trauma; Fall; Sprain or strain; Injury date: Today; Additional info: Trauma: Fall TECHNIQUE: Imaging protocol: XR of the chest Views: 1 view. COMPARISON: CR Chest 1V Frontal 11/08/2020 1:40 PM FINDINGS: Lungs: No lobar consolidation. No mass. Pleural space: Unremarkable. No pleural effusion. No pneumothorax. Heart/Mediastinum: Unremarkable. Mild cardiomegaly. Bones/joints: Unremarkable. IMPRESSION: 1. No acute findings. 2. Mild cardiomegaly.
== END 2020-11-17 16:50 ==
LOC: DL.ED 14:04
DX: S06.0X1A Concussion with loss of consciousness of 30 minutes or less, initial encounter (principal); R55 Syncope and collapse; S01.01XA Laceration without foreign body of scalp, initial encounter; I44.1 Atrioventricular block, second degree; E78.00 Pure hypercholesterolemia, unspecified; I12.9 Hypertensive chronic kidney disease with stage 1 through stage 4 chronic kidney disease, or unspecified chronic kidney disease; N18.9 Chronic kidney disease, unspecified; E11.22 Type 2 diabetes mellitus with diabetic chronic kidney disease; E03.9 Hypothyroidism, unspecified; I25.2 Old myocardial infarction; Z88.0 Allergy status to penicillin; Z88.8 Allergy status to other drugs, medicaments and biological substances; Z79.82 Long term (current) use of aspirin; Z79.4 Long term (current) use of insulin; Z79.02 Long term (current) use of antithrombotics/antiplatelets; Z95.5 Presence of coronary angioplasty implant and graft; Z23 Encounter for immunization; W00.0XXA Fall on same level due to ice and snow, initial encounter
CPT/HCPCS: 12015; 36415; 70450; 71045; 72125; 72192; 80053; 80307; 83690; 83880; 84484; 85025; 85610; 85730; 90471; 90715; 93005; 96374; 99285; J2001; J2405

== ENCOUNTER 2021-01-27 05:50 | Day surgery (SDC) | payer MEDICARE, BC ==
[2021-01-27] MEDS ORDERED: Midazolam 1 MG/ML 2 ML SDV IV ONE ×2 (05:51→07:28)
[2021-01-27] MEDS ORDERED: fentaNYL 100 MCG/2 ML SDV IV ONE ×2 (05:51→07:26)
[2021-01-27] MEDS ORDERED: Sodium Chloride 0.9% 10 ML Syringe FLUSH PRN (06:00)
[2021-01-27] MEDS ORDERED: Dextrose 5%-0.45% NaCl 1,000 ML IV SCH (06:00)
[2021-01-27] MEDS ORDERED: fentaNYL 100 MCG/2 ML SDV ONE (06:16)
[2021-01-27] MEDS ORDERED: Midazolam 1 MG/ML 2 ML SDV ONE (06:16)
[2021-01-27 10:49] VITALS: BP 111/52; PULSE 70
--- NOTE | 2021-01-27 11:56 | OR ---
DATE: 01/27/2021 PROCEDURE: Esophagogastroduodenoscopy and multiple pinch biopsies. INSTRUMENT USED: [id number] Olympus video panendoscope. PREMEDICATIONS: No oral topical anesthesia used. Fentanyl 50 mcg intravenous, Versed 2 mg intravenous. Nasal O2 cannula. The procedure was done under pulse oximetry, BP recording, and monitor worker. INDICATIONS: The patient with persistent dyspepsia and iron-deficiency anemia unexplained, on acid suppressant. The esophagogastroduodenoscopy is performed for detection of any active erosive lesions, Andrade esophagus and/or malignancy also under consideration, H pylori status to be determined, small bowel biopsies to be obtained for celiac disease if indicated, endoscopic hemostasis therapy if needed. DESCRIPTION OF PROCEDURE: The scope was passed with ease. Adequate visualization of the esophagus was made from proximal to distal areas. No upper esophageal lesions identified. No distal esophageal stricture. No uphill or downhill esophageal varices. No Ashli-Umana tear. No evidence of erosive esophagitis by Suring criteria. No esophageal polyp or tumor mass identified. Z-line was seen at around 39 cm distal to the oral verge. No proximal gastric varices noted. Gastric fundus examination by retroflexion showed multiple diminutive benign-appearing polyps. No gastric ulcer, malignant mass, or vascular ectasia identified. Duodenal bulb showed no ulcer. Visualized 2nd part of the duodenum was unremarkable. Multiple pinch biopsies, 4 in number, were taken from different areas of the 2nd part of the duodenum, and tissues were also obtained from the duodenal bulb at 9 and 12 o'clock positions and sent for any histopathologic evidence of celiac disease. Multiple pinch biopsies were also taken from the gastric antrum and proximal body and sent for PyloriTek test for H pylori and histopathology. No bleeding was noted from any of the visualized areas at the completion of examination. Photographs were taken of the duodenal bulb, gastric antrum, fundus, and distal esophagus. IMPRESSION: Diminutive gastric fundus polyps. The patient tolerated the procedure well. [facility] /[id number]
== END 2021-01-27 09:42 | disposition home or self-care (01) ==
LOC: DL.ENDO 05:50
PROVIDERS: ATTEND Internal Medicine Gastroenterology
DX: K29.50 Unspecified chronic gastritis without bleeding (principal); K31.89 Other diseases of stomach and duodenum; D50.9 Iron deficiency anemia, unspecified; K31.7 Polyp of stomach and duodenum; E66.09 Other obesity due to excess calories; E78.5 Hyperlipidemia, unspecified; E03.9 Hypothyroidism, unspecified; E11.22 Type 2 diabetes mellitus with diabetic chronic kidney disease; N18.9 Chronic kidney disease, unspecified; I12.9 Hypertensive chronic kidney disease with stage 1 through stage 4 chronic kidney disease, or unspecified chronic kidney disease; I25.10 Atherosclerotic heart disease of native coronary artery without angina pectoris; E53.8 Deficiency of other specified B group vitamins; E87.6 Hypokalemia; M85.80 Other specified disorders of bone density and structure, unspecified site; Z98.890 Other specified postprocedural states; Z88.8 Allergy status to other drugs, medicaments and biological substances; Z95.0 Presence of cardiac pacemaker; Z68.28 Body mass index [BMI] 28.0-28.9, adult
CPT/HCPCS: 43239; 87077; 88305; 88342; J2250; J3010; J7042

== ENCOUNTER 2021-12-11 11:59 | Emergency (ER) | payer MEDICARE, BC ==
[2021-12-11 13:21] VITALS: BP 155/79; PULSE 75
[2021-12-11 13:56] LABS: PTT,PARTIAL THROMBOPLSTIN TIME 21.4 SEC (22.0-34.0)
[2021-12-11 14:09] LABS: ANION GAP 17.4 mEq/L (7-13); CHLORIDE,CL 101 mmol/L (98-107); SODIUM,NA 141 mmol/L (136-145)
== END 2021-12-11 15:46 | disposition home or self-care (01) ==
LOC: DL.ED 11:59
DX: R06.02 Shortness of breath (principal); E86.0 Dehydration; E78.00 Pure hypercholesterolemia, unspecified; E11.22 Type 2 diabetes mellitus with diabetic chronic kidney disease; I12.9 Hypertensive chronic kidney disease with stage 1 through stage 4 chronic kidney disease, or unspecified chronic kidney disease; N18.9 Chronic kidney disease, unspecified; I25.2 Old myocardial infarction; E03.9 Hypothyroidism, unspecified; Z95.5 Presence of coronary angioplasty implant and graft; Z88.0 Allergy status to penicillin; Z88.1 Allergy status to other antibiotic agents; Z88.8 Allergy status to other drugs, medicaments and biological substances; Z79.4 Long term (current) use of insulin; Z79.899 Other long term (current) drug therapy; Z20.822 Contact with and (suspected) exposure to COVID-19
CPT/HCPCS: 36415; 71045; 80053; 83605; 83880; 84484; 85025; 85610; 85730; 93005; 99285; U0002

== ENCOUNTER 2023-06-24 11:54 | Emergency (ER) | payer MEDICARE, BC ==
[2023-06-24] MEDS ORDERED: Sodium Chloride 0.9% 10 ML Syringe FLUSH PRN (12:10)
[2023-06-24 12:22] LABS: BASOPHILS PERCENT AUTO 0.3 % (0.0-1.0); EOSINOPHILS PERCENT AUTO 1.3 % (1.0-3.0); HEMATOCRIT 39.2 % (37.0-47.0); HEMOGLOBIN 13.7 g/dL (12.0-16.0); LYMPHOCYTES PERCENT AUTO 28.2 % (20.5-50.1); MEAN CORPUSCULAR HEMOGLOBIN 30.3 pg (27.0-34.0); MEAN CORPUSCULAR HGB CONC 34.9 g/dL (33.0-35.0); MEAN CORPUSCULAR VOLUME 86.7 fL (80-100); MONOCYTES PERCENT AUTO 6.6 % (2-8); NEUTROPHILS PERCENT AUTO 63.6 % (42.2-75.2); PLATELET COUNT,PLT 340 10^3/uL (150-450); RED BLOOD CELL COUNT 4.52 10^6/uL (4.2-5.4); WHITE BLOOD CELL COUNT,WBC 10.2 10^3/uL (5.0-10.0)
[2023-06-24] MEDS ORDERED: Meclizine 12.5 MG Tab PO ONE (12:36)
[2023-06-24] MEDS ORDERED: Ondansetron 4 MG/2 ML SDV IV ONE (12:36)
[2023-06-24 12:37] VITALS: BP 164/79; PULSE 88
[2023-06-24] MEDS ORDERED: Dexamethasone 4 MG/ML SDV IVPUSH ONE (12:37)
[2023-06-24 12:40] LABS: APPEARANCE,URINE CLEAR (CLEAR); BILIRUBIN,URINE NEGATIVE (NEGATIVE); COLOR,URINE YELLOW (YELLOW); GLUCOSE,URINE NEGATIVE (NEGATIVE); KETONES,URINE NEGATIVE (NEGATIVE); LEUKOCYTE ESTERASE,URINE NEGATIVE (NEGATIVE); NITRITE,URINE NEGATIVE (NEGATIVE); OCCULT BLOOD,URINE NEGATIVE (NEGATIVE); PROTEIN,URINE 30 (NEGATIVE); UROBILINOGEN,URINE 0.2 mg/dL (0.2-1.0)
[2023-06-24 12:48] LABS: ALBUMIN 4.1 g/dL (3.4-5.0); ANION GAP 16.4 mEq/L (7-13); BILIRUBIN TOTAL 0.7 mg/dL (0.2-1.0); BUN/CREATININE RATIO 16.7 (No establ ref range); CALCIUM 9.6 mg/dL (8.5-10.1); CREATININE 0.9 mg/dL (0.55-1.02); EST CRCL DRUG DOSING (CG) 39.46 mL/min; MAGNESIUM 1.1 mg/dL (1.8-2.4); POTASSIUM,K 3.4 mmol/L (3.5-5.1); PROTEIN TOTAL,TP 8.1 g/dL (6.4-8.2)
[2023-06-24] MEDS ORDERED: Magnesium Sulfate/Water 2 GM in Premix Bag 1 BAG IV ONE ×2 (13:03→13:04)
[2023-06-24 13:16] LABS: BACTERIA,URINE RARE /HPF (0-FEW/HPF); EPITHELIAL CELLS,URINE FEW /HPF (NOT SEEN); RBC,URINE NOT SEEN /HPF (0-5); WBC,URINE 0-5 /HPF (0-5/HPF)
== END 2023-06-24 15:07 | disposition home or self-care (01) ==
LOC: DL.ED 11:54
DX: R42 Dizziness and giddiness (principal); E83.42 Hypomagnesemia; H83.09 Labyrinthitis, unspecified ear; E78.00 Pure hypercholesterolemia, unspecified; I12.9 Hypertensive chronic kidney disease with stage 1 through stage 4 chronic kidney disease, or unspecified chronic kidney disease; E11.22 Type 2 diabetes mellitus with diabetic chronic kidney disease; N18.9 Chronic kidney disease, unspecified; Z79.4 Long term (current) use of insulin; E03.9 Hypothyroidism, unspecified; Z79.899 Other long term (current) drug therapy; Z88.0 Allergy status to penicillin; Z88.1 Allergy status to other antibiotic agents; Z88.5 Allergy status to narcotic agent; Z88.6 Allergy status to analgesic agent; Z88.8 Allergy status to other drugs, medicaments and biological substances
CPT/HCPCS: 36415; 70450; 71045; 80053; 81001; 83735; 84484; 85025; 93005; 96365; 96375; 99284; A9270; J1100; J2405; J3360; J3475; 93010; J3490

== ENCOUNTER 2023-09-24 15:59 | Emergency (ER) | payer MEDICARE, BC ==
[2023-09-24] MEDS ORDERED: Sodium Chloride 0.9% 10 ML Syringe FLUSH PRN (16:05)
[2023-09-24 16:28] LABS: BASOPHILS PERCENT AUTO 0.3 % (0.0-1.0); HEMATOCRIT 38.9 % (37.0-47.0); HEMOGLOBIN 13.7 g/dL (12.0-16.0); LYMPHOCYTES PERCENT AUTO 29.9 % (20.5-50.1); MEAN CORPUSCULAR HEMOGLOBIN 30.6 pg (27.0-34.0); MEAN CORPUSCULAR HGB CONC 35.2 g/dL (33.0-35.0); MEAN CORPUSCULAR VOLUME 86.8 fL (80-100); MONOCYTES PERCENT AUTO 5.5 % (2-8); NEUTROPHILS PERCENT AUTO 63.3 % (42.2-75.2); PLATELET COUNT,PLT 350 10^3/uL (150-450); RED BLOOD CELL COUNT 4.48 10^6/uL (4.2-5.4)
[2023-09-24 16:42] LABS: INR 0.9 (0.9-1.2); PROTHROMBIN TIME 9.6 SEC (9.0-12.0); PTT,PARTIAL THROMBOPLSTIN TIME 25.6 SEC (22.0-34.0)
[2023-09-24 16:47] LABS: ALANINE AMINOTRANSFERASE,ALT 24 U/L (14-59); ALKALINE PHOSPHATASE 67 U/L (46-116); ANION GAP 12.8 mEq/L (7-13); ASPARTATE AMNIOTRANSFERASE,AST 19 U/L (15-37); B-TYPE NATRIURETIC PEPTIDE,BNP 97 pg/ml (0-100); BILIRUBIN TOTAL 0.5 mg/dL (0.2-1.0); BLOOD UREA NITROGEN,BUN 12 mg/dL (7-18); C-REACTIVE PROTEIN 0.17 ng/dL (<=0.30); CALCIUM 9.3 mg/dL (8.5-10.1); CARBON DIOXIDE,CO2 27 mmol/L (21-32); CHLORIDE,CL 100 mmol/L (98-107); CREATININE 0.86 mg/dL (0.55-1.02); EST CRCL DRUG DOSING (CG) 39.56 mL/min; GLUCOSE RANDOM 191 mg/dL (70-99); MAGNESIUM 1.1 mg/dL (1.8-2.4); POTASSIUM,K 3.8 mmol/L (3.5-5.1); PROTEIN TOTAL,TP 7.9 g/dL (6.4-8.2); SODIUM,NA 136 mmol/L (136-145)
[2023-09-24 16:49] LABS: ESTIMATED GFR 66 mL/min (>=60); LACTIC ACID 2.1 mmol/L (0.4-2.0)
[2023-09-24 17:06] LABS: CORONAVIRUS COVID-19 NAA NEGATIVE (NEGATIVE); INFLUENZA A NAA NEGATIVE (NEGATIVE); INFLUENZA B NAA NEGATIVE (NEGATIVE); RESPIRATORY SYNCYTIAL VIR NAA NEGATIVE (NEGATIVE)
[2023-09-24 17:22] LABS: APPEARANCE,URINE CLEAR (CLEAR); BILIRUBIN,URINE NEGATIVE (NEGATIVE); COLOR,URINE YELLOW (YELLOW); GLUCOSE,URINE NEGATIVE (NEGATIVE); KETONES,URINE NEGATIVE (NEGATIVE); LEUKOCYTE ESTERASE,URINE NEGATIVE (NEGATIVE); NITRITE,URINE NEGATIVE (NEGATIVE); OCCULT BLOOD,URINE NEGATIVE (NEGATIVE); PH,URINE 7.5 (5.0-9.0); PROTEIN,URINE NEGATIVE (NEGATIVE); UROBILINOGEN,URINE 0.2 mg/dL (0.2-1.0)
[2023-09-24] MEDS ORDERED: Magnesium Sulfate/Water 2 GM in Premix Bag 1 BAG IV ONE (17:29)
[2023-09-24 18:02] LABS: PHOSPHORUS 2.7 mg/dL (2.6-4.7); TSH ULTRASENSITIVE 0.76 uIU/mL (0.36-3.74)
[2023-09-24 20:31] LABS: MAGNESIUM 2.1 mg/dL (1.8-2.4)
[2023-09-24 21:15] VITALS: BP 159/81; PULSE 82
== END 2023-09-24 21:08 | disposition home or self-care (01) ==
LOC: DL.ED 15:59
DX: R07.89 Other chest pain (principal); E83.42 Hypomagnesemia; I10 Essential (primary) hypertension; E78.00 Pure hypercholesterolemia, unspecified; I25.2 Old myocardial infarction; E11.9 Type 2 diabetes mellitus without complications; E03.9 Hypothyroidism, unspecified; Z95.5 Presence of coronary angioplasty implant and graft; Z20.822 Contact with and (suspected) exposure to COVID-19; Z79.2 Long term (current) use of antibiotics; Z79.899 Other long term (current) drug therapy; Z88.1 Allergy status to other antibiotic agents; Z88.0 Allergy status to penicillin; Z88.8 Allergy status to other drugs, medicaments and biological substances
CPT/HCPCS: 0241U; 36415; 71045; 80053; 81003; 83605; 83735; 83880; 84100; 84145; 84443; 84484; 85025; 85610; 85730; 86140; 93005; 93010; 96365; 96366; 99284; 99285-25; J3475; J3490

== ENCOUNTER 2024-08-11 10:56 | Emergency (ER) | payer MEDICARE, BC ==
[2024-08-11 12:35] LABS: BASOPHILS PERCENT AUTO 0.3 % (0.0-1.0); EOSINOPHILS PERCENT AUTO 0.9 % (1.0-3.0); HEMATOCRIT 41.1 % (37.0-47.0); HEMOGLOBIN 14.5 g/dL (12.0-16.0); LYMPHOCYTES PERCENT AUTO 31.9 % (20.5-50.1); MEAN CORPUSCULAR HGB CONC 35.3 g/dL (33.0-35.0); MEAN CORPUSCULAR VOLUME 84.9 fL (80-100); MONOCYTES PERCENT AUTO 7.1 % (2-8); NEUTROPHILS PERCENT AUTO 59.8 % (42.2-75.2); PLATELET COUNT,PLT 279 10^3/uL (150-450); RED BLOOD CELL COUNT 4.84 10^6/uL (4.2-5.4); WHITE BLOOD CELL COUNT,WBC 6.7 10^3/uL (5.0-10.0)
[2024-08-11 13:17] LABS: A/G RATIO 1.1; ALANINE AMINOTRANSFERASE,ALT 29 U/L (14-59); ALBUMIN 3.7 g/dL (3.4-5.0); ALKALINE PHOSPHATASE 63 U/L (46-116); ANION GAP 13.5 mEq/L (7-13); ASPARTATE AMNIOTRANSFERASE,AST 22 U/L (15-37); BILIRUBIN TOTAL 0.5 mg/dL (0.2-1.0); BLOOD UREA NITROGEN,BUN 12 mg/dL (7-18); BUN/CREATININE RATIO 12.2 (No establ ref range); CALCIUM 9.1 mg/dL (8.5-10.1); CARBON DIOXIDE,CO2 27 mmol/L (21-32); CHLORIDE,CL 99 mmol/L (98-107); CREATININE 0.98 mg/dL (0.55-1.02); ESTIMATED GFR 56 mL/min (>=60); GLUCOSE RANDOM 150 mg/dL (70-99); MAGNESIUM 1.4 mg/dL (1.8-2.4); POTASSIUM,K 3.5 mmol/L (3.5-5.1); PROTEIN TOTAL,TP 7.2 g/dL (6.4-8.2); SODIUM,NA 136 mmol/L (136-145)
[2024-08-11] MEDS: Dexamethasone 4 MG/ML SDV IM ONE (13:22)
[2024-08-11] MEDS: Dexamethasone 4 MG/ML SDV IVPUSH ONE (13:32)
[2024-08-11] MEDS: Magnesium Oxide 400 MG Tab ONE (13:32)
[2024-08-11] MEDS: Magnesium Oxide 400 MG Tab PO SCH (13:32)
[2024-08-11 13:34] VITALS: BP 150/107; PULSE 79
== END 2024-08-11 14:03 | disposition home or self-care (01) ==
LOC: DL.ED 10:56
DX: U07.1 COVID-19 (principal); J06.9 Acute upper respiratory infection, unspecified; E83.42 Hypomagnesemia; E03.9 Hypothyroidism, unspecified; E11.22 Type 2 diabetes mellitus with diabetic chronic kidney disease; I12.9 Hypertensive chronic kidney disease with stage 1 through stage 4 chronic kidney disease, or unspecified chronic kidney disease; N18.9 Chronic kidney disease, unspecified; I25.2 Old myocardial infarction; E78.00 Pure hypercholesterolemia, unspecified; I25.10 Atherosclerotic heart disease of native coronary artery without angina pectoris; Z79.4 Long term (current) use of insulin; Z79.84 Long term (current) use of oral hypoglycemic drugs; Z79.02 Long term (current) use of antithrombotics/antiplatelets; Z79.899 Other long term (current) drug therapy; Z88.1 Allergy status to other antibiotic agents; Z88.8 Allergy status to other drugs, medicaments and biological substances
CPT/HCPCS: 36415; 71046; 80053; 82947; 83735; 85025; 87804; 96374; 99285-25; A9270-GY; J1100; U0002

== ENCOUNTER 2025-02-20 09:54 | Emergency (ER) | payer MEDICARE, BC ==
[2025-02-20 10:26] LABS: BASOPHILS PERCENT AUTO 0.2 % (0.0-1.0); EOSINOPHILS PERCENT AUTO 1.2 % (1.0-3.0); HEMATOCRIT 38.9 % (37.0-47.0); HEMOGLOBIN 13.6 g/dL (12.0-16.0); LYMPHOCYTES PERCENT AUTO 22.2 % (20.5-50.1); MEAN CORPUSCULAR VOLUME 85.7 fL (80-100); MONOCYTES PERCENT AUTO 5.1 % (2-8); NEUTROPHILS PERCENT AUTO 71.3 % (42.2-75.2); PLATELET COUNT,PLT 305 10^3/uL (150-450); RED BLOOD CELL COUNT 4.54 10^6/uL (4.2-5.4)
[2025-02-20 10:30] LABS: APPEARANCE,URINE CLEAR (CLEAR); BILIRUBIN,URINE NEGATIVE (NEGATIVE); COLOR,URINE YELLOW (YELLOW); GLUCOSE,URINE NEGATIVE (NEGATIVE); KETONES,URINE NEGATIVE (NEGATIVE); LEUKOCYTE ESTERASE,URINE TRACE (NEGATIVE); NITRITE,URINE NEGATIVE (NEGATIVE); OCCULT BLOOD,URINE NEGATIVE (NEGATIVE); PROTEIN,URINE NEGATIVE (NEGATIVE); UROBILINOGEN,URINE 0.2 mg/dL (0.2-1.0)
[2025-02-20 10:36] LABS: EPITHELIAL CELLS,URINE FEW /HPF (NOT SEEN)
[2025-02-20 10:37] LABS: AMORPHOUS SEDIMENT,URINE FEW /HPF (NOT SEEN); BACTERIA,URINE RARE /HPF (0-FEW/HPF); RBC,URINE 0-5 /HPF (0-5); WBC,URINE 0-5 /HPF (0-5/HPF)
[2025-02-20 10:48] LABS: ALBUMIN 3.8 g/dL (3.4-5.0); ANION GAP 14.6 mEq/L (7-13); BILIRUBIN TOTAL 0.7 mg/dL (0.2-1.0); BUN/CREATININE RATIO 13.7 (No establ ref range); CALCIUM 9.7 mg/dL (8.5-10.1); CREATININE 0.95 mg/dL (0.55-1.02); EST CRCL DRUG DOSING (CG) 36.71 mL/min; LACTIC ACID 1.4 mmol/L (0.4-2.0); MAGNESIUM 1.3 mg/dL (1.8-2.4); POTASSIUM,K 3.6 mmol/L (3.5-5.1); PROTEIN TOTAL,TP 7.7 g/dL (6.4-8.2)
[2025-02-20 10:51] LABS: PROTHROMBIN TIME 10.3 SEC (9.0-12.0); PTT,PARTIAL THROMBOPLSTIN TIME 23.8 SEC (22.0-34.0)
[2025-02-20] MEDS: Iopamidol 755 Mg/ML 100 ML Bottle IVPUSH ONE (12:27)
[2025-02-20] MEDS: Acetaminophen 500 MG Tab PO ONE (12:45)
[2025-02-20 12:46] VITALS: BP 174/82; PULSE 84
[2025-02-20] MEDS: GI Cocktail Oral Solution 30 ML PO ONE (13:22)
== END 2025-02-20 13:32 | disposition home or self-care (01) ==
LOC: DL.ED 09:54
DX: R07.9 Chest pain, unspecified (principal); I10 Essential (primary) hypertension; E11.9 Type 2 diabetes mellitus without complications; E78.00 Pure hypercholesterolemia, unspecified; E03.9 Hypothyroidism, unspecified; Z88.1 Allergy status to other antibiotic agents; Z88.8 Allergy status to other drugs, medicaments and biological substances; Z79.4 Long term (current) use of insulin; Z79.890 Hormone replacement therapy
CPT/HCPCS: 36415; 71045; 71275; 80053; 81001; 83605; 83735; 84484; 85025; 85610; 85730; 87086; 87428; 99285; A9270; Q9967; 99283

== ENCOUNTER 2025-03-27 06:09 | Emergency (ER) | payer MEDICARE, BC ==
[2025-03-27] MEDS ORDERED: Sodium Chloride 0.9% 10 ML Syringe FLUSH PRN (06:20)
[2025-03-27] MEDS ORDERED: Nitroglycerin 0.4 MG Tab.SL SL PRN (06:29)
[2025-03-27 06:34] LABS: BASOPHILS PERCENT AUTO 0.2 % (0.0-1.0); EOSINOPHILS PERCENT AUTO 1.1 % (1.0-3.0); HEMOGLOBIN 15.4 g/dL (12.0-16.0); MEAN CORPUSCULAR HEMOGLOBIN 29.5 pg (27.0-34.0); MEAN CORPUSCULAR VOLUME 84.3 fL (80-100); MONOCYTES PERCENT AUTO 8.5 % (2-8); NEUTROPHILS PERCENT AUTO 53.2 % (42.2-75.2); PLATELET COUNT,PLT 386 10^3/uL (150-450); RED BLOOD CELL COUNT 5.22 10^6/uL (4.2-5.4); WHITE BLOOD CELL COUNT,WBC 12.8 10^3/uL (5.0-10.0)
[2025-03-27] MEDS: Aspirin 81 MG Tab.Chew PO ONE (06:42)
[2025-03-27 06:50] LABS: ALANINE AMINOTRANSFERASE,ALT 27 U/L (14-59); ALBUMIN 4.2 g/dL (3.4-5.0); ALKALINE PHOSPHATASE 82 U/L (46-116); ANION GAP 13.9 mEq/L (7-13); ASPARTATE AMNIOTRANSFERASE,AST 21 U/L (15-37); BILIRUBIN TOTAL 0.8 mg/dL (0.2-1.0); BLOOD UREA NITROGEN,BUN 20 mg/dL (7-18); BUN/CREATININE RATIO 18.3 (No establ ref range); CALCIUM 10.2 mg/dL (8.5-10.1); CARBON DIOXIDE,CO2 29 mmol/L (21-32); CHLORIDE,CL 96 mmol/L (98-107); CREATININE 1.09 mg/dL (0.55-1.02); ESTIMATED GFR 49 mL/min (>=60); GLUCOSE RANDOM 112 mg/dL (70-99); POTASSIUM,K 2.9 mmol/L (3.5-5.1); PROTEIN TOTAL,TP 8.2 g/dL (6.4-8.2); SODIUM,NA 136 mmol/L (136-145)
[2025-03-27 06:59] LABS: PROTHROMBIN TIME 10.2 SEC (9.0-12.0)
[2025-03-27 07:03] LABS: B-TYPE NATRIURETIC PEPTIDE,BNP 46 pg/ml (0-100)
[2025-03-27] MEDS: Potassium Chloride 10 MEQ in Premix Bag 1 BAG IV ONE (07:45)
[2025-03-27] MEDS: Sodium Chloride 0.9% 500 ML IV SCH (07:54)
[2025-03-27] MEDS: Heparin Sodium 5,000 Units/ML Vial IVPUSH ONE (08:34)
[2025-03-27] MEDS: Nitroglycerin/D5W 25 MG/250 ML BOTTLE IV SCH (08:45)
[2025-03-27] MEDS: Heparin Sodium/0.45% NaCl 25,000 UNITS/500 ML BAG IV SCH (08:49)
[2025-03-27 08:54] VITALS: PULSE 70
[2025-03-27 09:19] VITALS: BP 163/94
== END 2025-03-27 09:07 ==
LOC: DL.ED 06:09
DX: I20.0 Unstable angina (principal); I25.2 Old myocardial infarction; I12.9 Hypertensive chronic kidney disease with stage 1 through stage 4 chronic kidney disease, or unspecified chronic kidney disease; N18.9 Chronic kidney disease, unspecified; E78.00 Pure hypercholesterolemia, unspecified; E11.22 Type 2 diabetes mellitus with diabetic chronic kidney disease; E03.9 Hypothyroidism, unspecified; Z90.49 Acquired absence of other specified parts of digestive tract; Z88.0 Allergy status to penicillin; Z88.1 Allergy status to other antibiotic agents; Z88.8 Allergy status to other drugs, medicaments and biological substances; Z79.4 Long term (current) use of insulin; Z79.890 Hormone replacement therapy; Z79.899 Other long term (current) drug therapy
CPT/HCPCS: 36415; 71045; 80053; 83880; 84484; 85025; 85610; 85730; 93005; 93010; 96365; 96367; 96368; 99285; A9270; J1644; J2305; J3480; J7030

== ENCOUNTER 2025-07-14 08:50 | Emergency (ER) | payer MEDICARE, BC ==
[2025-07-14 09:21] LABS: BASOPHILS PERCENT AUTO 0.2 % (0.0-1.0); EOSINOPHILS PERCENT AUTO 1.3 % (1.0-3.0); LYMPHOCYTES PERCENT AUTO 28.3 % (20.5-50.1); MONOCYTES PERCENT AUTO 7.8 % (2-8); NEUTROPHILS PERCENT AUTO 62.4 % (42.2-75.2); PLATELET COUNT,PLT 332 10^3/uL (150-450); RED BLOOD CELL COUNT 4.20 10^6/uL (4.2-5.4); WHITE BLOOD CELL COUNT,WBC 9.6 10^3/uL (5.0-10.0)
[2025-07-14] MEDS: Nitroglycerin 0.4 MG Tab.SL SL ONE (09:35)
[2025-07-14 09:43] LABS: B-TYPE NATRIURETIC PEPTIDE,BNP 76.0 pg/ml (0-100)
[2025-07-14 09:47] LABS: A/G RATIO 1.1; ALANINE AMINOTRANSFERASE,ALT 25.0 U/L (14-59); ASPARTATE AMNIOTRANSFERASE,AST 22.0 U/L (15-37); BILIRUBIN TOTAL 0.6 mg/dL (0.2-1.0); BLOOD UREA NITROGEN,BUN 13.0 mg/dL (7-18); CARBON DIOXIDE,CO2 26.0 mmol/L (21-32); CHLORIDE,CL 101.0 mmol/L (98-107); CREATININE 0.88 mg/dL (0.55-1.02); EST CRCL DRUG DOSING (CG) 37.26 mL/min; ESTIMATED GFR 64.0 mL/min (>=60); GLUCOSE RANDOM 175.0 mg/dL (70-99); POTASSIUM,K 3.6 mmol/L (3.5-5.1); PROTEIN TOTAL,TP 7.7 g/dL (6.4-8.2); SODIUM,NA 140.0 mmol/L (136-145)
[2025-07-14 09:49] LABS: INR 1.1 (0.9-1.2)
[2025-07-14 12:02] VITALS: BP 151/74; PULSE 70
== END 2025-07-14 12:15 | disposition home or self-care (01) ==
LOC: DL.ED 08:50
DX: I20.9 Angina pectoris, unspecified (principal); I12.9 Hypertensive chronic kidney disease with stage 1 through stage 4 chronic kidney disease, or unspecified chronic kidney disease; N18.9 Chronic kidney disease, unspecified; E11.22 Type 2 diabetes mellitus with diabetic chronic kidney disease; I25.2 Old myocardial infarction; E03.9 Hypothyroidism, unspecified; Z90.49 Acquired absence of other specified parts of digestive tract; Z88.0 Allergy status to penicillin; Z88.1 Allergy status to other antibiotic agents; Z88.8 Allergy status to other drugs, medicaments and biological substances; Z79.4 Long term (current) use of insulin; Z79.890 Hormone replacement therapy; Z79.899 Other long term (current) drug therapy
CPT/HCPCS: 36415; 71045; 80053; 83880; 84484; 85025; 85610; 99285; A9270; 93010; 99284